=== PATIENT | female | born 1955 | race Caucasian/White ===

== ENCOUNTER 2017-11-26 08:00 | Emergency (ER) | payer SELFPAY ==
[2017-11-26 08:17] VITALS: BP 138/83
[2017-11-26] MEDS ORDERED: HYDROCODONE/ACETAMINOPHEN 5-325 MG TABLET PO ONE (09:19)
--- NOTE | 2017-11-26 10:14 | RADIOLOGY REPORT (SQ) ---
EXAM DESCRIPTION: KNEE RIGHT 4 VIEWS COMPLETED DATE/TIME: 11/26/2017 9:58 am REASON FOR STUDY: r knee pain, dog hit back of knee COMPARISON: None. NUMBER OF VIEWS: Four views. TECHNIQUE: AP, lateral, and both oblique radiographic images acquired of the right knee. LIMITATIONS: None. FINDINGS: MINERALIZATION: Normal. BONES: No acute fracture or dislocation. No worrisome bone lesions. 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 JOINT: No effusion. SOFT TISSUES: No soft tissue swelling. No radio-opaque foreign body. OTHER: No other significant finding. IMPRESSION: NEGATIVE STUDY OF THE RIGHT KNEE. NO RADIOGRAPHIC EVIDENCE OF ACUTE INJURY. TECHNICAL DOCUMENTATION: JOB ID: [id number] [employer]- All Rights Reserved
--- NOTE | 2017-11-26 10:38 | ER Document Report ---
HPI - HPI Patient complains to provider of: r knee pain Onset: Yesterday Onset/Duration: Sudden Quality of pain: Achy Pain Level: 5 Context: Patient has a history of chronic right knee pain is currently being evaluated by her primary doctor to have an outpatient MRI. Patient states yesterday that her dog came behind her hitting the back of her right knee which caused her knee to pop. Patient complains of increased pain since then and difficulty with weightbearing. Associated Symptoms: Other - Right knee injury Exacerbated by: Standing, Movement, Walking Relieved by: Denies Similar symptoms previously: No Recently seen / treated by doctor: No - ROS ROS below otherwise negative: Yes Systems Reviewed and Negative: Yes All other systems reviewed and negative - NEURO Neurology: DENIES: Weakness - MUSCULOSKELETAL Musculoskeletal: REPORTS: Extremity pain - post. right knee - DERM Skin Color: Normal Skin Problems: None Past Medical History - General Information source: Patient - Social History Smoking Status: Never Smoker Chew tobacco use (# tins/day): No Frequency of alcohol use: None Drug Abuse: None Occupation: Works from home Lives with: Family Family History: Reviewed & Not Pertinent Patient has suicidal ideation: No Patient has homicidal ideation: No - Medical History Medical History: Negative Renal/ Medical History: Denies: Hx Peritoneal Dialysis Past Surgical History: Reports: Hx Section, Hx Orthopedic Surgery Vertical Provider Document - CONSTITUTIONAL Agree With Documented VS: Yes Exam Limitations: No Limitations General Appearance: WD/WN, No Apparent Distress - INFECTION CONTROL TRAVEL OUTSIDE OF THE [place] IN LAST 30 DAYS: No - HEENT HEENT: Atraumatic, Normocephalic - NECK Neck: Normal Inspection - RESPIRATORY Respiratory: Breath Sounds Normal, No Respiratory Distress O2 Sat by Pulse Oximetry: 97 - CARDIOVASCULAR Cardiovascular: Regular Rate, Regular Rhythm Pulses: Normal: Dorsalis pedis - MUSCULOSKELETAL/EXTREMETIES Musculoskeletal/Extremeties: MAEW, Tender - Right knee joint tenderness to medial inferior compartment, no laxity with varus or valgus maneuvers. Patellar tendon intact. No joint effusion - NEURO Level of Consciousness: Awake, Alert, Appropriate Motor/Sensory: No Motor Deficit - DERM Integumentary: Warm, Dry, No Rash Course - Vital Signs Vital signs: Temp Pulse Resp BP Pulse Ox 98.2 F 82 16 138/83 H 97 11/26/17 08:15 11/26/17 08:15 11/26/17 08:15 11/26/17 08:15 11/26/17 08:15 - Diagnostic Test Radiology reviewed: Image reviewed, Reports reviewed Procedures - Immobilization Right Knee Pre-Proc Neuro Vasc Exam: Normal Immobilizer type: Knee immobilizer Performed by: PCT Post-Proc Neuro Vasc Exam: Normal Alignment checked and good: Yes Discharge - Discharge Clinical Impression: Right knee sprain Qualifiers: Encounter type: initial encounter Involved ligament of knee: unspecified ligament Qualified Code(s): S83.91XA - Sprain of unspecified site of right knee , initial encounter Condition: Stable Disposition: HOME, SELF-CARE Instructions: Use of Crutches ([facility]), Ice & Elevation ([facility]), Knee Immobilizing Splint ([facility]), Oral Narcotic Medication ([facility]), Sprained Knee ([facility]) Additional Instructions: Return immediately for any new or worsening symptoms Followup with your primary care provider, call tomorrow to make a followup appointment Follow-up with orthopedic doctor for further evaluation of her right knee pain Prescriptions: Hydrocodone/Acetaminophen [[place] 5-325 Tablet] 1 each PO Q4 PRN #10 tablet PRN Reason: Referrals: ASHLEY UMANZOR MD [Primary Care Provider] - Follow up as needed [facility] [Provider Group] - Follow up in 3-5 days
== END 2017-11-26 11:03 | disposition home or self-care (01) ==
LOC: ER 08:00
DX: S83.91XA Sprain of unspecified site of right knee, initial encounter (principal); M25.561 Pain in right knee; W54.1XXA Struck by dog, initial encounter; Y92.009 Unspecified place in unspecified non-institutional (private) residence as the place of occurrence of the external cause
CPT/HCPCS: 99283; 73564; L1830

== ENCOUNTER → 2017-12-02 | Outpatient (CLI) | payer SELFPAY ==
--- NOTE | 2017-12-02 16:37 | RADIOLOGY REPORT (SQ) ---
EXAM DESCRIPTION: MRI RT LOWER JOINT WITHOUT COMPLETED DATE/TIME: 12/02/2017 3:45 pm REASON FOR STUDY: M25.561 PAIN IN RIGHT KNEE M25.561 PAIN IN RIGHT KNEE COMPARISON: None. TECHNIQUE: Rightknee images acquired and stored on PACS. Multiplanar images include fat sensitive s equences as T1, water sensitive sequences as FST2 or STIR, cartilage sensitive sequences as FSPD, and gradient echo sequences. LIMITATIONS: None. FINDINGS: JOINT AND BURSAE: No effusion. BONE CORTEX AND MARROW: No alteration of signal to suggest marrow replacement. No worrisome bone lesi ons. No occult fracture. ACL: Diffusely small and high in signal worrisome for chronic tear PCL: Intact. MCL: Intact. No periligamentous edema or fluid. LCL: Intact. No periligamentous edema or fluid. MEDIAL MENISCUS: There is high signal throughout the posterior horn medial meniscus from horizontal t ear. No parameniscal cysts. LATERAL MENISCUS: No tears. No abnormal signal. MEDIAL COMPARTMENT: Mild chondromalacia. No bone bruises or reactive marrow edema. No osteophytes. LATERAL COMPARTMENT: Cartilage preserved. No bone bruises or reactive marrow edema. No osteophytes. PATELLA: Mild chondromalacia. No subchondral cysts. Medial and lateral retinacula intact. EXTENSOR MECHANISM: Intact. Quadriceps and patella tendons normal. SOFT TISSUES: There is tendinopathy of the proximal attachment, medial head gastrocnemius muscle, bes t shown on coronal image 18-20 and sagittal image 24. An adjacent 15 mm cyst is present. OTHER: No other significant finding. IMPRESSION: Insufficient ACL, small with high signal, likely chronic tear Posterior horn medial meniscus tear Proximal medial head gastrocnemius tendinopathy with adjacent synovial cyst TECHNICAL DOCUMENTATION: JOB ID: [id number] [employer]- All Rights Reserved Reading location - IP/workstation name: [email or web address]
== END ==
LOC: RAD 15:25
PROVIDERS: ATTEND Family Medicine
DX: M25.561 Pain in right knee (principal); M23.221 Derangement of posterior horn of medial meniscus due to old tear or injury, right knee

== ENCOUNTER 2018-09-16 08:18 | Day surgery (SDC) | payer SELFPAY ==
[2018-09-09 09:45] LABS: APPEARANCE,URINE SLIGHTLY-CLOUDY; BILIRUBIN,URINE NEGATIVE (NEGATIVE); COLOR,URINE YELLOW; GLUCOSE, URINE NEGATIVE (NEGATIVE); KETONES,URINE NEGATIVE (NEGATIVE); LEUKOCYTE ESTERASE,URINE LARGE (NEGATIVE); NITRITE,URINE NEGATIVE (NEGATIVE); PROTEIN,URINE NEGATIVE (NEGATIVE); URINE SPECIFIC GRAVITY 1.013; UROBILINOGEN,URINE NEGATIVE mg/dL (<2.0)
[2018-09-09 10:05] LABS: ANION GAP 11 (5-19); BLOOD UREA NITROGEN 14 mg/dL (7-20); CALCIUM 9.6 mg/dL (8.4-10.2); CARBON DIOXIDE 33 mmol/L (22-30); CHLORIDE 101 mmol/L (98-107); GLUCOSE 81 mg/dL (75-110); POTASSIUM 4.7 mmol/L (3.6-5.0); SODIUM 144.9 mmol/L (137-145)
[2018-09-09 11:51] LABS: HEMATOCRIT 42.3 % (36.0-47.0); HEMOGLOBIN 14.4 g/dL (12.0-15.5); MEAN CORPUSCULAR HEMOGLOBIN 30.6 pg (27.0-33.4); MEAN CORPUSCULAR HGB CONC 34.1 g/dL (32.0-36.0); MEAN CORPUSCULAR VOLUME 90 fl (80-97); RED BLOOD COUNT 4.71 10^6/uL (3.72-5.28); RED CELL DISTRIBUTION WIDTH 13.7 % (11.5-14.0); WHITE BLOOD COUNT 7.2 10^3/uL (4.0-10.5)
[2018-09-09 11:54] LABS: PLATELET COUNT 233 10^3/uL (150-450)
--- NOTE | 2018-09-09 11:58 | EKG REPORT ---
SEVERITY:- NORMAL ECG - SINUS RHYTHM : Confirmed by: Hay Ramos 09-Sep-2018 11:58:14
[~2018-09-16 08:18] MED LIST: CEFAZOLIN 2 GM/D5W RTU 2 GM/50 ML RTUPB IV PRN; LACTATED RINGERS 1000 ML IV PRN; LIDOCAINE 0.5% INJ-PF (5 MG/ML) 50 ML SDV SUBCUT PRN
[2018-09-16] MEDS ORDERED: CEFAZOLIN 2 GM/D5W RTU 2 GM/50 ML RTUPB IV ONE (08:35)
[2018-09-16] MEDS ORDERED: BUPIVACAINE HCL 0.5 % INJ/PF 30 ML SDV ONE (08:56)
[2018-09-16] MEDS ORDERED: LIDOCAINE 1%/EPINEPHRINE INJ 20 ML VIAL ONE (08:57)
[2018-09-16] MEDS ORDERED: ONDANSETRON HCL INJ/PF 4 MG/2 ML SDV ONE (10:35)
[2018-09-16] MEDS ORDERED: FENTANYL CITRATE INJ/PF 100 MCG/2 ML AMPUL ONE (10:35)
[2018-09-16] MEDS ORDERED: MIDAZOLAM 2 MG/2 ML INJ ONE (10:35)
[2018-09-16] MEDS ORDERED: PROPOFOL INJ 200 MG/20 ML VIAL IV ONE (10:36)
[2018-09-16] MEDS ORDERED: MORPHINE SULFATE 10 MG/ML INJ IV PRN (10:57)
[2018-09-16] MEDS ORDERED: FENTANYL CITRATE INJ/PF 100 MCG/2 ML AMPUL IV PRN ×3 (10:57)
[2018-09-16] MEDS ORDERED: DIPHENHYDRAMINE HCL 50 MG/ML VIAL IV PRN (10:57)
[2018-09-16] MEDS ORDERED: MEPERIDINE HCL/PF INJ 25 MG/1 ML DISP.SYRIN IV PRN (10:57)
[2018-09-16] MEDS ORDERED: PROMETHAZINE HCL INJ 25 MG/1 ML VIAL IV PRN (10:57)
--- NOTE | 2018-09-16 11:13 | Operative Report ---
Operative Report DATE OF SURGERY: 09/16/18 PREOPERATIVE DIAGNOSIS: Right medial meniscal tear POSTOPERATIVE DIAGNOSIS: Right medial meniscal tear. 1-1/2 cm chondral injury medial tibial plateau. Grade II chondromalacia the medial compartment. Intact ACL. Intact lateral meniscus. Linear fissure through the lateral tibial plateau. Grade 0-I chondromalacia the patellofemoral compartment OPERATION: Arthroscopic microfracture medial tibial plateau and partial medial meniscectomy SURGEON: EMILE GARCIA ANESTHESIA: LMAC ESTIMATED BLOOD LOSS: Minimal PROCEDURE: With the patient supine and operative table the right lower extremities prepped and draped in sterile fashion. The knee is insufflated with accommodation Marcaine, Xylocaine, and epinephrine through medial lateral infrapatellar portals. Subsequent medial lateral patella portals are created for the introduction of arthroscope and debridements mentation. The arthroscope was inserted through the lateral infrapatellar portal and the joint examined in systematic fashion findings as above. Using a mechanical shaver the debridement of the medial tibial plateau chondral injury is performed for all loose aspects around its periphery. This is also used to perform partial medial meniscectomy from approximately 2:00 to 5:00 on the face of the dial. Next microfracture awls were then used to punctate the medial tibial plateau that is exposed subchondral bone. Intra-articular pressure was then decreased to ensure that this leads to bleeding and subsequent access to the bone marrow. Instrumentation was removed. Portals reapproximated interrupted nylon. A sterile compressive dressing was applied and the patient's return to PACU in satisfactory condition.
--- NOTE | 2018-09-16 11:16 | Discharge Summary ---
Discharge Summary (SDC) - Discharge Final Diagnosis: Right medial meniscal tear Date of Surgery: 09/16/18 Discharge Date: 09/16/18 Condition: Good Treatment or Instructions: Removed compressive wrap from right lower extremity on Friday. Leave the underlying OpSite dressing in place until you return to the office Prescriptions: Oxycodone HCl/Acetaminophen [Percocet 5-325 mg Tablet] 1 tab PO Q6 PRN #25 tab PRN Reason: Referrals: EMILE GARCIA MD [ACTIVE STAFF] - 09/20/18 2:00 pm Discharge Diet: As Tolerated, Regular Respiratory Treatments at Home: Deep Breathing/Coughing Discharge Activity: Balance Activity w/Rest, No tub bath Home Care Assistance: None Needed Report the Following to Your Physician Immediately: Shortness of Breath, Fever over 101 Degrees, Drainage-Foul Smelling
[2018-09-16] MEDS: FENTANYL CITRATE INJ/PF 100 MCG/2 ML AMPUL ONE ×2 (11:22→11:28)
[2018-09-16] MEDS ORDERED: OXYCODONE-ACETAMINOPHEN 5-325 MG TABLET ONE (12:13)
[2018-09-16] MEDS ORDERED: OXYCODONE-ACETAMINOPHEN 5-325 MG TABLET PO ONE (12:30)
[2018-09-16 13:58] VITALS: BP 174/76
== END 2018-09-16 13:45 | disposition home or self-care (01) ==
LOC: OROUT 08:18
PROVIDERS: ATTEND Orthopaedic Surgery
DX: M94.261 Chondromalacia, right knee (principal); M23.303 Other meniscus derangements, unspecified medial meniscus, right knee; S83.31XA Tear of articular cartilage of right knee, current, initial encounter; X58.XXXA Exposure to other specified factors, initial encounter; M25.561 Pain in right knee; Z79.891 Long term (current) use of opiate analgesic; E66.9 Obesity, unspecified; Z68.35 Body mass index [BMI] 35.0-35.9, adult; M19.90 Unspecified osteoarthritis, unspecified site
CPT/HCPCS: 93005; 36415; 85027; 80048; 81001; 93010; 29879; 29880; J2250; J3490 ×2; J3010; J2405; J2704; J0690; 1400

== ENCOUNTER 2019-07-23 09:46 | Observation (INO) | payer MEDICARE ==
[2019-07-23] MEDS ORDERED: ASPIRIN 81 MG TABLET, CHEWABLE PO ONE (09:48)
[2019-07-23 10:05] LABS: ABSOLUTE BASOPHILS # (AUTO) 0.1 10^3/uL (0.0-0.2); ABSOLUTE EOSINOPHILS # (AUTO) 0.2 10^3/uL (0.0-0.6); ABSOLUTE LYMPHOCYTES (AUTO) 1.8 10^3/uL (0.5-4.7); ABSOLUTE MONOCYTES (AUTO) 0.6 10^3/uL (0.1-1.4); ABSOLUTE NEUT (AUTO) 5.3 10^3/uL (1.7-8.2); EOSINOPHILS % (AUTO) 2.8 % (0-6); HEMATOCRIT 46.5 % (36.0-47.0); HEMOGLOBIN 15.4 g/dL (12.0-15.5); LYMPHOCYTES % (AUTO) 22.2 % (13-45); MEAN CORPUSCULAR HEMOGLOBIN 29.8 pg (27.0-33.4); MEAN CORPUSCULAR HGB CONC 33.2 g/dL (32.0-36.0); MEAN CORPUSCULAR VOLUME 90 fl (80-97); PLATELET COUNT 249 10^3/uL (150-450); RED BLOOD COUNT 5.18 10^6/uL (3.72-5.28); RED CELL DISTRIBUTION WIDTH 13.1 % (11.5-14.0); TOTAL CELLS COUNTED % (AUTO) 100 %; WHITE BLOOD COUNT 8.1 10^3/uL (4.0-10.5)
[2019-07-23] MEDS ORDERED: METOPROLOL TARTRATE PF/INJ 5 MG/5 ML SDV IV ONE (10:10)
[2019-07-23] MEDS ORDERED: NORMAL SALINE 1000 ML 1,000 ML IV ONE (10:11)
--- NOTE | 2019-07-23 10:15 | ER Document Report ---
Entered by EMILE JOSEPH SCRIBE 07/23/19 1015 Acting as scribe for:FREDO BRADLEY MD ED Cardiac - General Chief Complaint: Chest Pain Stated Complaint: CHEST PAIN Time Seen by Provider: 07/23/19 10:00 Primary Care Provider: STAR SHEN MD [NO LOCAL MD] - Follow up as needed Mode of Arrival: Medic Information source: Patient Notes: 64-year-old female who presents the emergency department today with complaints of chest pain with associated palpitations and a heart racing sensation which began at 0845 this morning. Patient states she had just gotten to work when her symptoms began. Patient states the pain radiates to her back but it is "much better now". Patient states she was given nitroglycerin in route by EMS which did not really change the pain. Patient states when the pain began she was diaphoretic and "could not breathe through her nose". Patient states she does not know any of her family history other than her maternal grandfather having diabetes as she is adopted. TRAVEL OUTSIDE OF THE [place] IN LAST 30 DAYS: No - Related Data Allergies/Adverse Reactions: No Known Allergies Allergy (Verified 09/16/18 08:29) Past Medical History - General Information source: Patient - Social History Smoking Status: Never Smoker Cigarette use (# per day): No Chew tobacco use (# tins/day): No Frequency of alcohol use: Rare Drug Abuse: None Family History: Reviewed & Not Pertinent Patient has suicidal ideation: No Patient has homicidal ideation: No Musculoskeletal Medical History: Reports Hx Arthritis - right knee Past Surgical History: Reports: Hx Section - x2, Hx Cholecystectomy, Hx Hysterectomy, Hx Orthopedic Surgery - Left knee, Carpal Tunnel surgery, Hx Tonsillectomy - Immunizations Hx Diphtheria, Pertussis, Tetanus Vaccination: No Review of Systems - Review of Systems Constitutional: See HPI, Diaphoresis EENT: No symptoms reported Cardiovascular: See HPI, Chest pain, Palpitations, Heart racing Respiratory: See HPI, Short of breath Gastrointestinal: No symptoms reported Genitourinary: No symptoms reported Female Genitourinary: No symptoms reported Musculoskeletal: No symptoms reported Skin: No symptoms reported Hematologic/Lymphatic: No symptoms reported Neurological/Psychological: No symptoms reported -: Yes All other systems reviewed and negative Physical Exam - Vital signs Vitals: Pulse Ox 96 07/23/19 09:55 - Notes Notes: Physical Exam: General: Alert, appears well. HEENT: Normocephalic. Atraumatic. PERRL. Extraocular movements intact. Oropharynx clear. Neck: Supple. Non-tender. Respiratory: Anterior chest wall tenderness to palpation, left greater than right. No respiratory distress. Clear and equal breath sounds bilaterally. Cardiovascular: Tachycardic, regular rhythm. Abdominal: Obese. Non-tender. No distension. Normal Bowel Sounds. Back: No gross abnormalities. Extremities: Moves all four extremities. Upper extremities: Normal inspection. Normal ROM. Lower extremities: Normal inspection. No edema. Normal ROM. Neurological: Normal cognition. AAOx4. Normal speech. Psychological: Normal affect. Normal Mood. Skin: Warm. Dry. Normal color. Course - Re-evaluation Re-evalutation: 07/23/19 10:37 Prior to the patient getting the Lopressor IV dose that was ordered, she spontan eously converted to a normal sinus rhythm with rate of 96 and a totally normal EKG. Her blood pressure dropped from 150 systolic to 132/76. - Vital Signs Vital signs: Temp Pulse Resp BP Pulse Ox 98.3 F 150/123 H 96 07/23/19 10:00 07/23/19 10:05 07/23/19 10:45 - Laboratory Result Diagrams: 07/23/19 09:30 07/23/19 09:30 Laboratory results interpreted by me: 07/23/19 09:30 Carbon Dioxide 21 L Glucose 122 H AST 57 H - Diagnostic Test Radiology reviewed: Image reviewed, Reports reviewed - Chest x-ray shows elevation of the right hemidiaphragm, no acute radiographic findings. - EKG Interpretation by Ks EKG shows normal: Jesse, Intervals, QRS Complexes. abnormal: ST-T Waves - Anterolateral ST depression Rate: Tachycardia - 139 Rhythm: Other - Junctional tachycardia Jesse/QRS: Left axis deviation - Borderline left axis deviation - Consults Dr. Zee Time consulted: 12:40 Consulted provider: will come to ER Critical Care Note - Critical Care Note Total time excluding time spent on procedures (mins): 30 Discharge - Discharge Clinical Impression: Junctional tachycardia, Elevated blood pressure reading Chest pain Qualifiers: Chest pain type: unspecified Qualified Code(s): R07.9 - Chest pain, unspecified Condition: Stable Disposition: ADMITTED INPATIENT Admitting Provider: Yayo (Hospitalist) Unit Admitted: Telemetry Referrals: STAR SHEN MD [NO LOCAL MD] - Follow up as needed Scribe Attestation: 07/23/19 12:45 I personally performed the services described in the documentation, reviewed and edited the documentation which was dictated to the scribe in my presence, and it accurately records my words and actions. I personally performed the services described in the documentation, reviewed and edited the documentation which was dictated to the scribe in my presence, and it accurately records my words and actions.
[2019-07-23 10:31] LABS: ALBUMIN 4.3 g/dL (3.5-5.0); ALKALINE PHOSPHATASE 107 U/L (38-126); ANION GAP 12 (5-19); ASPARTATE AMINO TRANSFERASE 57 U/L (14-36); BILIRUBIN,DIRECT 0.2 mg/dL (0.0-0.4); BILIRUBIN,TOTAL 0.9 mg/dL (0.2-1.3); BLOOD UREA NITROGEN 10 mg/dL (7-20); CALCIUM 9.7 mg/dL (8.4-10.2); CARBON DIOXIDE 21 mmol/L (22-30); CHLORIDE 107 mmol/L (98-107); CREATINE KINASE 96 U/L (30-135); GLUCOSE 122 mg/dL (75-110); POTASSIUM 4.5 mmol/L (3.6-5.0); TOTAL PROTEIN 7.6 g/dL (6.3-8.2)
[2019-07-23 10:58] LABS: CREATINE KINASE MB 0.62 ng/mL (<4.55)
[2019-07-23 10:59] LABS: TROPONIN I < 0.012 ng/mL
--- NOTE | 2019-07-23 11:02 | RADIOLOGY REPORT (SQ) ---
EXAM DESCRIPTION: CHEST SINGLE VIEW COMPLETED DATE/TIME: 07/23/2019 10:44 am REASON FOR STUDY: Chest pain, SVT COMPARISON: None. EXAM PARAMETERS: NUMBER OF VIEWS: One view. TECHNIQUE: Single frontal radiographic view of the chest acquired. RADIATION DOSE: NA LIMITATIONS: None. FINDINGS: LUNGS AND PLEURA: Elevation of the right hemidiaphragm. No opacities, masses or pneumotho rax. No pleural effusion. MEDIASTINUM AND HILAR STRUCTURES: No masses. Contour normal. HEART AND VASCULAR STRUCTURES: Heart normal in size. Normal vasculature. BONES: No acute findings. HARDWARE: None in the chest. OTHER: No other significant finding. IMPRESSION: NO ACUTE RADIOGRAPHIC FINDING IN THE CHEST. TECHNICAL DOCUMENTATION: JOB ID: [id number] [employer] All Rights Reserved Reading location - IP/workstation name: [email or web address]
[2019-07-23] MEDS ORDERED: OXYCODONE-ACETAMINOPHEN 5-325 MG TABLET PO PRN (14:13)
[2019-07-23] MEDS ORDERED: ONDANSETRON HCL INJ/PF 4 MG/2 ML SDV IV PRN (14:13)
[2019-07-23] MEDS ORDERED: TEMAZEPAM 7.5 MG CAPSULE PO PRN (14:13)
[2019-07-23] MEDS ORDERED: ACETAMINOPHEN 325 MG TABLET PO PRN (14:13)
[2019-07-23] MEDS ORDERED: PROMETHAZINE HCL INJ 25 MG/1 ML VIAL IV PRN (14:13)
[2019-07-23] MEDS ORDERED: ALBUTEROL SULFATE 0.083% NEB 2.5 MG/3 ML AMPUL NEB PRN (14:13)
[2019-07-23] MEDS ORDERED: NORMAL SALINE 1000 ML 1,000 ML IV PRN (14:13)
[2019-07-23] MEDS ORDERED: HYDRALAZINE HCL INJ/PF 20 MG/1 ML SDV IV PRN (14:49)
[2019-07-23 14:51] LABS: FREE T3 3.53 pg/mL (2.77-5.27); FREE T4 (FREE THYROXINE) 1.19 ng/dL (0.78-2.19)
[2019-07-23 15:04] LABS: THYROID STIMULATING HORMONE 2.65 uIU/mL (0.47-4.68)
[2019-07-23 18:01] LABS: ANION GAP 10 (5-19); BLOOD UREA NITROGEN 10 mg/dL (7-20); CALCIUM 9.4 mg/dL (8.4-10.2); CARBON DIOXIDE 28 mmol/L (22-30); CHLORIDE 105 mmol/L (98-107); GLUCOSE 108 mg/dL (75-110); POTASSIUM 4.2 mmol/L (3.6-5.0)
--- NOTE | 2019-07-23 19:06 | PDOC H&P ---
History of Present Illness Admission Date/PCP: 07/23/19 13:00 ASHLEY UMANZOR MD History of Present Illness: LEORA VILLAVICENCIO is a 64 year old female with no significant past medical history and not taking any medication except for multiple surgeries in the past, presented to ED complaining of chest pain. Patient stating when he got to work today she was doing fine but suddenly started having pressure-like left-sided chest pain radiating to her back, associated with dizziness, palpitation, cold sweats and nausea. She feels pressure-like chest pain within 10 minutes intermittently lasting about 1 to 2 minutes each time. Chest pain got resolved after she was given sublingual nitroglycerin by EMS. Patient not very active because of her multiple bilateral lower extremity surgeries however she denies any orthopnea, paroxysmal nocturnal dyspnea, dyspnea on exertion, weight changes, pillow orthopnea. Patient is adopted and could not provide any family history. In ED she was noted to have junctional tachycardia was allowed to get be given some beta-blockers however she converted to sinus rhythm on her own. Follow-up EKG was sinus rhythm with no acute changes. Initial troponin was negative however the second troponin was mildly elevated. Hospitalist was consulted for admission. Past Medical History Cardiac Medical History: Denies: Coronary Artery Disease, Myocardial Infarction, Hypertension Pulmonary Medical History: Denies: Asthma, Bronchitis, Chronic Obstructive Pulmonary Disease (COPD), [place] Neurological Medical History: Denies: Seizures Musculoskeltal Medical History: Reports: Arthritis - right knee Hematology: Reports: Anemia - as a teen & 2015 Past Surgical History Past Surgical History: Reports: Section - x2, Cholecystectomy, Hysterectomy, Orthopedic Surgery - Left knee, Carpal Tunnel surgery, Tonsillectomy Social History Smoking Status: Never Smoker Electronic Cigarette use?: No Family History Family History: Reviewed & Not Pertinent Parental Family History Reviewed: Yes Children Family History Reviewed: Yes Sibling(s) Family History Reviewed.: Yes Medication/Allergy Home Medications: Diphenhydramine HCl [Benadryl] 25 mg PO HSP PRN 07/23/19 Ibuprofen/Diphenhydramine HCl [Advil Pm Liqui-Gels] 1 each PO QHS 07/23/19 Allergies/Adverse Reactions: No Known Allergies Allergy (Verified 09/16/18 08:29) Review of Systems Review of Systems: as per hpi Physical Exam Vital Signs: Temp Pulse Resp BP Pulse Ox 98.3 F 150/123 H 96 07/23/19 10:00 07/23/19 10:05 07/23/19 10:45 Intake & Output 07/22/19 07/23/19 07/24/19 06:59 06:59 06:59 Intake Total 1000 Balance 1000 Weight 116.1 kg General appearance: PRESENT: morbidly obese Head exam: PRESENT: atraumatic, normocephalic Eye exam: PRESENT: conjunctiva pink, EOMI, PERRLA. ABSENT: scleral icterus Ear exam: PRESENT: normal external ear exam Mouth exam: PRESENT: moist, tongue midline Neck exam: ABSENT: carotid bruit, JVD, lymphadenopathy, thyromegaly Respiratory exam: PRESENT: clear to auscultation lin. ABSENT: rales, rhonchi, wheezes Cardiovascular exam: PRESENT: RRR. ABSENT: diastolic murmur, rubs, systolic murmur Pulses: PRESENT: normal dorsalis pedis pul Vascular exam: PRESENT: normal capillary refill GI/Abdominal exam: PRESENT: normal bowel sounds, soft. ABSENT: distended, guarding, mass, organolmegaly, rebound, tenderness Rectal exam: PRESENT: deferred Extremities exam: PRESENT: full ROM. ABSENT: calf tenderness, clubbing, pedal edema Neurological exam: PRESENT: alert, awake, oriented to person, oriented to place, oriented to time, oriented to situation, CN II-XII grossly intact. ABSENT: motor sensory deficit Psychiatric exam: PRESENT: appropriate affect, normal mood. ABSENT: homicidal ideation, suicidal ideation Skin exam: PRESENT: dry, intact, warm. ABSENT: cyanosis, rash Results Laboratory Results: 07/23/19 09:30 07/23/19 17:15 07/23/19 07/23/19 07/23/19 09:30 09:30 11:24 WBC 8.1 RBC 5.18 Hgb 15.4 Hct 46.5 MCV 90 MCH 29.8 MCHC 33.2 RDW 13.1 Plt Count 249 Seg Neutrophils % 66.0 Sodium 140.3 Potassium 4.5 Chloride 107 Carbon Dioxide 21 L Anion Gap 12 BUN 10 Creatinine 0.70 Est GFR ( Amer) > 60 Glucose 122 H Calcium 9.7 Total Bilirubin 0.9 AST 57 H Alkaline Phosphatase 107 Total Protein 7.6 Albumin 4.3 Lipase TSH 2.65 Free T4 1.19 Free T3 pg/mL 3.53 07/23/19 07/23/19 17:15 17:15 WBC RBC Hgb Hct MCV MCH MCHC RDW Plt Count Seg Neutrophils % Sodium 142.5 Potassium 4.2 Chloride 105 Carbon Dioxide 28 Anion Gap 10 BUN 10 Creatinine 0.70 Est GFR ( Amer) > 60 Glucose 108 Calcium 9.4 Total Bilirubin AST Alkaline Phosphatase Total Protein Albumin Lipase 103.9 TSH Free T4 Free T3 pg/mL 07/23/19 07/23/19 07/23/19 09:30 09:30 11:24 Creatine Kinase 96 CK-MB (CK-2) 0.62 Troponin I < 0.012 0.021 07/23/19 17:15 Creatine Kinase CK-MB (CK-2) Troponin I 0.080 Impressions: Chest X-Ray 07/23/19 10:10 IMPRESSION: NO ACUTE RADIOGRAPHIC FINDING IN THE CHEST. Assessment and Plan - Diagnosis (1) Chest pain Qualifiers: Chest pain type: unspecified Qualified Code(s): R07.9 - Chest pain, unspecified Is this a current diagnosis for this admission?: Yes Plan: HEART Score of 7 Patient cannot provide any family history as she is adopted. No significant past medical history who presented with very typical chest pain. Patient will need nuclear stress test for further risk stratification however Dr. Bell will not be available over the weekend and a stress test could not be done until next Friday. I have discussed the case with Dr. Bell who suggested to order a stat echo and he will see her tomorrow. Admit to telemetry, antiplatelets, beta-blockers, GEORGE, statins. Trend troponins. Cardiology consulted. (2) Junctional tachycardia Is this a current diagnosis for this admission?: Yes Plan: Patient presents with sinus rhythm with no intervention. I wonder if her elevated troponins are due to junctional tachycardia or ACS. Admit to telemetry, trend troponins, antiplatelets, beta-blockers, cardiology consult. (3) Hypertension Is this a current diagnosis for this admission?: Yes Plan: Denies any history of hypertension however has noted to be hypertensive on this admission. Continue GEORGE. Adjust meds as needed. Outpatient PCP follow-up. (4) Elevated troponin Is this a current diagnosis for this admission?: Yes Plan: Likely elevated due to ACS VS junctional tachycardia. Plan as per 1 and 2.
[2019-07-23] MEDS ORDERED: NITROGLYCERIN 0.4 MG/TAB 25 TAB/BOTTLE SL PRN (19:10)
[2019-07-23] MEDS ORDERED: MORPHINE SULFATE 10 MG/ML INJ IV PRN (19:10)
[2019-07-23] MEDS: LISINOPRIL 10 MG TABLET PO SCH (19:26)
[2019-07-23] MEDS ORDERED: ATORVASTATIN CALCIUM 10 MG TABLET PO ONE (20:00)
[2019-07-23] MEDS ORDERED: ATORVASTATIN CALCIUM 40 MG TABLET PO SCH (22:00)
[2019-07-23] MEDS: FAMOTIDINE 20 MG TABLET PO SCH (22:08)
[2019-07-24 06:29] LABS: ABSOLUTE BASOPHILS # (AUTO) 0.1 10^3/uL (0.0-0.2); ABSOLUTE EOSINOPHILS # (AUTO) 0.2 10^3/uL (0.0-0.6); ABSOLUTE LYMPHOCYTES (AUTO) 2.1 10^3/uL (0.5-4.7); ABSOLUTE MONOCYTES (AUTO) 0.7 10^3/uL (0.1-1.4); ABSOLUTE NEUT (AUTO) 3.9 10^3/uL (1.7-8.2); BASOPHILS % (AUTO) 0.8 % (0-2); EOSINOPHILS % (AUTO) 3.3 % (0-6); HEMATOCRIT 40.5 % (36.0-47.0); HEMOGLOBIN 13.4 g/dL (12.0-15.5); LYMPHOCYTES % (AUTO) 30.2 % (13-45); MEAN CORPUSCULAR HGB CONC 33.1 g/dL (32.0-36.0); MEAN CORPUSCULAR VOLUME 91 fl (80-97); PLATELET COUNT 202 10^3/uL (150-450); RED BLOOD COUNT 4.47 10^6/uL (3.72-5.28); RED CELL DISTRIBUTION WIDTH 13.2 % (11.5-14.0); SEGMENTED NEUTROPHILS % (AUTO) 55.7 % (42-78); TOTAL CELLS COUNTED % (AUTO) 100 %
[2019-07-24 06:52] LABS: ANION GAP 7 (5-19); BLOOD UREA NITROGEN 12 mg/dL (7-20); CALCIUM 9.3 mg/dL (8.4-10.2); CARBON DIOXIDE 26 mmol/L (22-30); CHLORIDE 106 mmol/L (98-107); GLUCOSE 85 mg/dL (75-110); POTASSIUM 4.3 mmol/L (3.6-5.0)
[2019-07-24 08:48] LABS: URINE AMPHETAMINES SCREEN NEGATIVE; URINE BARBITURATES SCREEN NEGATIVE; URINE BENZODIAZEPINES SCREEN NEGATIVE; URINE COCAINE SCREEN NEGATIVE; URINE MARIJUANA (THC) SCREEN NEGATIVE; URINE METHADONE SCREEN NEGATIVE; URINE PHENCYCLIDINE SCREEN NEGATIVE
[2019-07-24] MEDS: FAMOTIDINE 20 MG TABLET PO SCH (09:04)
[2019-07-24] MEDS: LISINOPRIL 10 MG TABLET PO SCH (09:05)
[2019-07-24] MEDS ORDERED: ENOXAPARIN SODIUM INJ 40 MG/0.4 ML DISP.SYRIN SUBCUT SCH (10:00)
[2019-07-24] MEDS ORDERED: ASPIRIN 81 MG TABLET, CHEWABLE PO SCH (10:00)
[2019-07-24] MEDS ORDERED: DOCUSATE SODIUM 100 MG/10 ML UDC PO SCH (10:00)
--- NOTE | 2019-07-24 13:09 | XCELERA REPORT ---
[address] [address] Transthoracic Echocardiogram Report Name: LEORA VILLAVICENCIO Age: 64 yrs Gender: Female : 1955 Patient Status: Inpatient Patient Location: [place] [address]^A Study Date: 07/23/2019 06:06 PM Height: 66 in Weight: 255 lb BSA: 2.2 m2 Procedure: A two-dimensional transthoracic echocardiogram with color flow and Doppler was performed. Study Quality: Technically suboptimal. Images were not obtained from all of the standard acoustic windows due to the limited scope of the study. Reason For Study: chest pain Ordering Physician: MARY MARKHAM Performed By: Autumn Ortiz Interpretation Summary The left ventricle is normal in size. There is normal left ventricular wall thickness. No 'True 2 chamber ' views obtained.Hence cannot comment on the apical and basal inferior ,and the apical and basal anterior tristan.The mid anterior ,the mid inferior , and the rest of the LV waaaalls contract normally.The LVEF in these limited views is normal and greater than 60%. Doppler measurements suggest normal left ventricular diastolic function There is no thrombus. Probably no ASD .VSD or PFO seen. The right ventricle is not well visualized secondary to technical limitations Right atrium not well visualized secondary to technical limitations The left atrial size is normal. There is no mitral valve stenosis. There is no evidence of mitral valve prolapse. There is no vegetation seen on the mitral valve. There is no aortic valvular vegetation. There is no aortic valve stenosis No aortic regurgitation is present. There is no tricuspid stenosis. There is a trace amount of tricuspid regurgitation Tricuspid regurgitation jet envelope not well defined to measure RV systolic pressure accurately. There is no pulmonic valvular stenosis. There is no pulmonic valvular regurgitation. The aortic root is normal size. The inferior vena cava appeared normal and decreased > 50% with respiration (RAP 5-10 mmHg) There is no pericardial effusion. MMode/2D Measurements & Calculations RVDd: 2.3 cm LVIDd: 3.8 cm FS: 35.2 % Ao root diam: 2.8 cm IVSd: 1.3 cm LVIDs: 2.5 cm EDV(Teich): 61.3 ml Ao root area: 6.1 cm2 LVPWd: 0.93 cm ESV(Teich): 21.3 ml LA dimension: 2.9 cm EF(Teich): 65.3 % Doppler Measurements & Calculations MV E max kong: MV P1/2t max kong: Ao V2 max: LV V1 max P.3 cm/sec 101.6 cm/sec 114.7 cm/sec 3.6 mmHg MV A max kong: MV P1/2t: 60.3 msec Ao max PG: LV V1 max: 80.0 cm/sec MVA(P1/2t): 3.6 cm2 5.3 mmHg 94.3 cm/sec MV E/A: 1.2 MV dec slope: 493.4 cm/sec2 MV dec time: 0.24 sec PA V2 max: MV P1/2t-pr_phl: 80.8 cm/sec 60.3 msec PA max P.6 mmHg Left Ventricle The left ventricle is normal in size. There is normal left ventricular wall thickness. No 'True 2 chamber ' views obtained.Hence cannot comment on the apical and basal inferior ,and the apical and basal anterior tristan.The mid anterior ,the mid inferior , and the rest of the LV waaaalls contract normally.The LVEF in these limited views is normal and greater than 60%. Doppler measurements suggest normal left ventricular diastolic function. There is no thrombus. Probably no ASD .VSD or PFO seen. Right Ventricle The right ventricle is not well visualized secondary to technical limitations. Atria Right atrium not well visualized secondary to technical limitations. The left atrial size is normal. Mitral Valve There is no evidence of mitral valve prolapse. There is no vegetation seen on the mitral valve. There is no mitral valve stenosis. There is a trace to mild amount of mitral regurgitation. Aortic Valve There is no aortic valvular vegetation. There is no aortic valve stenosis. No aortic regurgitation is present. Tricuspid Valve There is no tricuspid stenosis. There is a trace amount of tricuspid regurgitation. Tricuspid regurgitation jet envelope not well defined to measure RV systolic pressure accurately. Pulmonic Valve There is no pulmonic valvular stenosis. There is no pulmonic valvular regurgitation. Great Vessels The aortic root is normal size. The inferior vena cava appeared normal and decreased > 50% with respiration (RAP 5-10 mmHg). Effusions There is no pericardial effusion. : MARY MARKHAM Lakshmi
[2019-07-24] MEDS ORDERED: METOPROLOL SUCCINATE 25 MG TAB.SR.24H PO ONE (14:48)
[2019-07-24 16:07] VITALS: BP 143/62
[2019-07-24] MEDS ORDERED: ATORVASTATIN CALCIUM 40 MG TABLET PO SCH (22:00)
--- NOTE | 2019-07-24 22:34 | PDOC CONSULTATION ---
Consultation-Blank Consultation: CARDIOLOGY CONSULTATION by Dr. Kiersten Bell on 07/24/2019. Patient seen at 2 PM. 60 minutes spent on this patient with more than 50% of time spent in direct patient care. HISTORY PRESENT ILLNESS: Patient is a 64-year-old female with probably mild untreated hypertension, and obesity states that had broken sudden onset of diaphoresis and chest pain and rapid palpitations. She had some dizziness but no syncope. This lasted till she came to the emergency room where she was found to have an EKG which showed junctional tachycardia. There were about to give her IV Lopressor when the patient spontaneous converted to sinus rhythm. The patient denies such episodes in the past. As soon as the patient converted to sinus rhythm spontaneously the patient had no further chest pain. The patient's post conversion EKG to sinus rhythm shows that the EKG is within normal limits. Her cardiac biomarkers are negative/indeterminate. The patient has no prior history of coronary artery disease or palpitations or syncope or symptoms of congestive heart failure. At present the patient in no acute distress with no complaints. Past Medical History Cardiac Medical History: Denies: Coronary Artery Disease, Myocardial Infarction, Hypertension. But when the patient came in the emergency room she was hypertensive, although this could be secondary to the patient's anxiety due to the rapid beating of the heart, the patient most likely has mild untreated hypertension. This most likely will be controlled with Toprol-XL 25 mg p.o. daily, which will also prevent the patient from going into junctional tachycardia most likely. There is no prior history of tachycardia or cardiac arrhythmia. No history of syncope. No history of congestive heart failure. Pulmonary Medical History: Denies: Asthma, Bronchitis, Chronic Obstructive Pulmonary Disease (COPD), Pneumonia Neurological Medical History: Denies: Seizures Musculoskeltal Medical History: Reports: Arthritis - right knee Hematology: Reports: Anemia - as a teen & 2015 Past Surgical History Past Surgical History: Reports: Section - x2, Cholecystectomy, Hysterectomy, Orthopedic Surgery - Left knee, Carpal Tunnel surgery, Tonsillectomy Social History Smoking Status: Never Smoker Electronic Cigarette use?: No Family History Family History: Is negative for diabetes mellitus or coronary artery disease. RESUSCITATION STATUS: The patient is a full code. Her is her surrogate healthcare decision maker. Medication/Allergy Home Medications: Diphenhydramine HCl [Benadryl] 25 mg PO HSP PRN 07/23/19 Ibuprofen/Diphenhydramine HCl [Advil Pm Liqui-Gels] 1 each PO QHS 07/23/19 Allergies/Adverse Reactions: No Known Allergies Allergy (Verified 09/16/18 08: 29) Her medications reviewed as per MAR. Review of Systems Review of Systems: Constitutional: Denies any fever chills or rigors. Denies generalized fatigue or generalized weakness. HEAD: No history of headaches migraines or head injury. EYES: No history of amblyopia diplopia. No history of amaurosis fugax. EARS: No history of hearing loss. No tinnitus. NOSE: No history of hayfever. No history of nosebleeds. MOUTH: No history of altered taste sensation. No ulcers in the mouth. THROAT: No history of odynophagia or dysphagia. No recurrent sore throats. SKIN: No history of pruritus. No history of yellowish discoloration of skin. No eczema or skin cancer. NECK: No neck swelling or neck pain. LUNGS: No history of asthma or COPD. No symptoms of sleep apnea. No history of pulmonary embolism. No recent cough or symptoms of upper or lower respiratory tract infections. No hemoptysis. No pleuritic chest pain. HEART: Denies hypertension but the patient's blood pressure was mildly elevated on admission. This is the first episode of tachycardia and the patient the EKG showing junctional tachycardia. No endocrine abnormalities or any other precipitating factors found. No dizziness or syncope. No history of coronary artery disease, OK or anginal symptoms. No history of congestive heart failure. ENDOCRINE: No history of diabetes mellitus or thyroid disease. No history of polydipsia polyuria. No history of heat or cold intolerance. MUSCULOSKELETAL: Denies rheumatoid arthritis or collagen vascular disease. RENAL: No history of chronic kidney disease. No symptoms or UTI. No hematuria pyuria or dysuria. GI: No history of GI bleed. No history of GERD. No history of peptic ulcer disease. No history of fatty food intolerance. COMPLEX CASE MANAGER: No history of TIA CVA. No history of headaches migraines or seizures. PSYCHIATRIC: No homicidal ideation. No suicidal ideation. No history of anxiety or depression. VASCULAR: No history of calf or buttock claudication. METABOLIC: Denies hyperlipidemia. Does have obesity. No history of gout. VASCULAR: No history of calf or buttock claudication. No history of DVT. PHYSICAL EXAMINATION: The patient is moderate to morbidly obese. At present in no acute distress. She is in sinus rhythm. Selected Entries 07/24/19 07/24/19 12:05 14:00 Temperature 97.7 F Temperature Oral Source Pulse Rate 80 Respiratory 16 Rate Blood Pressure 131/69 H Blood Pressure 89 Mean BP Location Right Arm BP Position Supine O2 Sat by Pulse 98 Oximetry Oxygen Delivery Room Air Method HEAD: Atraumatic, normocephalic. EYES: Pupils equal round and reactive to light, extraocular movements intact, sclera anicteric, conjunctiva are normal. ENT: TMs normal, nares patent, oropharynx clear without exudates. Moist mucous membranes. NECK: Normal range of motion, supple without lymphadenopathy or JVD. LUNGS: Breath sounds clear to auscultation bilaterally and equal. No wheezes rales or rhonchi. There is no chest wall tenderness HEART: S1-S2 is heard. S1 is of normal intensity. There is no S3 gallop. There is no S4 gallop. There is systolic murmur left sternal border and the apex, there is no rub ABDOMEN: Soft, nontender, normoactive bowel sounds. No guarding, no rebound. No masses appreciated. EXTREMITIES: Normal range of motion, no pitting or edema. No clubbing or cyanosis. NEUROLOGICAL: Cranial nerves II through XII grossly intact. Normal speech, normal gait. There is subtle weakness in the left hand j2ee java developer. Sensations are normal bilaterally. PSYCH: Normal mood, normal affect. His judgment and insight are intact SKIN: Warm, Dry, normal turgor, no rashes or lesions noted. Labs- Entire Visit 07/23/19 07/23/19 07/23/19 09:30 09:30 09:30 WBC 8.1 RBC 5.18 Hgb 15.4 Hct 46.5 MCV 90 MCH 29.8 MCHC 33.2 RDW 13.1 Plt Count 249 Lymph % (Auto) 22.2 Conway % (Auto) 8.0 Eos % (Auto) 2.8 Baso % (Auto) 1.0 Absolute Neuts (auto) 5.3 Absolute Lymphs (auto) 1.8 Absolute Monos (auto) 0.6 Absolute Eos (auto) 0.2 Absolute Basos (auto) 0.1 Seg Neutrophils % 66.0 Sodium 140.3 Potassium 4.5 Chloride 107 Carbon Dioxide 21 L Anion Gap 12 BUN 10 Creatinine 0.70 Est GFR ( Amer) > 60 Est GFR (MDRD) Non-Af > 60 Glucose 122 H Hemoglobin A1c % Calcium 9.7 Magnesium Total Bilirubin 0.9 Direct Bilirubin 0.2 Neonat Total Bilirubin Not Reportable Neonat Direct Bilirubin Not Reportable Neonat Indirect Bili Not Reportable AST 57 H ALT 46 Alkaline Phosphatase 107 Creatine Kinase 96 CK-MB (CK-2) 0.62 Troponin I < 0.012 Total Protein 7.6 Albumin 4.3 Lipase TSH Free T4 Free T3 pg/mL Urine Opiates Screen Urine Methadone Screen Ur Barbiturates Screen Ur Phencyclidine Scrn Ur Amphetamines Screen U Benzodiazepines Scrn Urine Cocaine Screen U Marijuana (THC) Screen 07/23/19 07/23/19 07/23/19 11:24 11:24 17:15 WBC RBC Hgb Hct MCV MCH MCHC RDW Plt Count Lymph % (Auto) Conway % (Auto) Eos % (Auto) Baso % (Auto) Absolute Neuts (auto) Absolute Lymphs (auto) Absolute Monos (auto) Absolute Eos (auto) Absolute Basos (auto) Seg Neutrophils % Sodium 142.5 Potassium 4.2 Chloride 105 Carbon Dioxide 28 Anion Gap 10 BUN 10 Creatinine 0.70 Est GFR ( Amer) > 60 Est GFR (MDRD) Non-Af > 60 Glucose 108 Hemoglobin A1c % Calcium 9.4 Magnesium Total Bilirubin Direct Bilirubin Neonat Total Bilirubin Neonat Direct Bilirubin Neonat Indirect Bili AST ALT Alkaline Phosphatase Creatine Kinase CK-MB (CK-2) Troponin I 0.021 Total Protein Albumin Lipase TSH 2.65 Free T4 1.19 Free T3 pg/mL 3.53 Urine Opiates Screen Urine Methadone Screen Ur Barbiturates Screen Ur Phencyclidine Scrn Ur Amphetamines Screen U Benzodiazepines Scrn Urine Cocaine Screen U Marijuana (THC) Screen 07/23/19 07/23/19 07/23/19 17:15 17:15 23:16 WBC RBC Hgb Hct MCV MCH MCHC RDW Plt Count Lymph % (Auto) Conway % (Auto) Eos % (Auto) Baso % (Auto) Absolute Neuts (auto) Absolute Lymphs (auto) Absolute Monos (auto) Absolute Eos (auto) Absolute Basos (auto) Seg Neutrophils % Sodium Potassium Chloride Carbon Dioxide Anion Gap BUN Creatinine Est GFR ( Amer) Est GFR (MDRD) Non-Af Glucose Hemoglobin A1c % Calcium Magnesium Total Bilirubin Direct Bilirubin Neonat Total Bilirubin Neonat Direct Bilirubin Neonat Indirect Bili AST ALT Alkaline Phosphatase Creatine Kinase CK-MB (CK-2) Troponin I 0.080 0.071 Total Protein Albumin Lipase 103.9 TSH Free T4 Free T3 pg/mL Urine Opiates Screen Urine Methadone Screen Ur Barbiturates Screen Ur Phencyclidine Scrn Ur Amphetamines Screen U Benzodiazepines Scrn Urine Cocaine Screen U Marijuana (THC) Screen 07/24/19 07/24/19 07/24/19 05:37 05:37 05:37 WBC 7.0 RBC 4.47 Hgb 13.4 Hct 40.5 MCV 91 MCH 30.0 MCHC 33.1 RDW 13.2 Plt Count 202 Lymph % (Auto) 30.2 Conway % (Auto) 10.0 Eos % (Auto) 3.3 Baso % (Auto) 0.8 Absolute Neuts (auto) 3.9 Absolute Lymphs (auto) 2.1 Absolute Monos (auto) 0.7 Absolute Eos (auto) 0.2 Absolute Basos (auto) 0.1 Seg Neutrophils % 55.7 Sodium Potassium Chloride Carbon Dioxide Anion Gap BUN Creatinine Est GFR ( Amer) Est GFR (MDRD) Non-Af Glucose Hemoglobin A1c % Calcium Magnesium 2.3 Total Bilirubin Direct Bilirubin Neonat Total Bilirubin Neonat Direct Bilirubin Neonat Indirect Bili AST ALT Alkaline Phosphatase Creatine Kinase CK-MB (CK-2) Troponin I 0.051 Total Protein Albumin Lipase TSH Free T4 Free T3 pg/mL Urine Opiates Screen Urine Methadone Screen Ur Barbiturates Screen Ur Phencyclidine Scrn Ur Amphetamines Screen U Benzodiazepines Scrn Urine Cocaine Screen U Marijuana (THC) Screen 07/24/19 07/24/19 07/24/19 05:37 05:37 08:20 WBC RBC Hgb Hct MCV MCH MCHC RDW Plt Count Lymph % (Auto) Conway % (Auto) Eos % (Auto) Baso % (Auto) Absolute Neuts (auto) Absolute Lymphs (auto) Absolute Monos (auto) Absolute Eos (auto) Absolute Basos (auto) Seg Neutrophils % Sodium 139.4 Potassium 4.3 Chloride 106 Carbon Dioxide 26 Anion Gap 7 BUN 12 Creatinine 0.63 Est GFR ( Amer) > 60 Est GFR (MDRD) Non-Af > 60 Glucose 85 Hemoglobin A1c % 5.4 Calcium 9.3 Magnesium Total Bilirubin Direct Bilirubin Neonat Total Bilirubin Neonat Direct Bilirubin Neonat Indirect Bili AST ALT Alkaline Phosphatase Creatine Kinase CK-MB (CK-2) Troponin I Total Protein Albumin Lipase TSH Free T4 Free T3 pg/mL Urine Opiates Screen NEGATIVE Urine Methadone Screen NEGATIVE Ur Barbiturates Screen NEGATIVE Ur Phencyclidine Scrn NEGATIVE Ur Amphetamines Screen NEGATIVE U Benzodiazepines Scrn NEGATIVE Urine Cocaine Screen NEGATIVE U Marijuana (THC) Screen NEGATIVE Chest X-Ray 07/23/19 10:10 IMPRESSION: NO ACUTE RADIOGRAPHIC FINDING IN THE CHEST. EKG: The patient's admission EKG shows junctional tachycardia. Rate related ST depression. Borderline left axis deviation. The patient is EKG from today show s sinus rhythm. Within normal limits. ECHOCARDIOGRAM: Note no to 2 chamber apical views obtained. Hence cannot comment on the apical anterior and the basal anterior tristan and also the apical inferior and the basal inferior tristan. The mid inferior and mid anterior and the rest of the LV tristan contract normally. There is no aortic stenosis or aortic regurgitation. There is trace tricuspid regurgitation. Unable to calculate right ventricle systolic pressure due to insufficient TR jet. There is no mitral stenosis or mitral prolapse. Echo, EKG, and lab results discussed with the patient in detail. IMPRESSION/RECOMMENDATION: 1. Junctional tachycardia: Paroxysmal. Patient at present sinus rhythm. Would recommend starting the patient on Toprol-XL 25 mg p.o. daily. Would recommend outpatient 30-day event monitor to see if there is recurrence of junctional tachycardia. Also would recommend the patient have IV Lexiscan Cardiolite stress test as an outpatient. 2. Probably has mild hypertension. 3. Systolic "flow murmur". 4. No evidence of acute coronary syndrome or biomarkers elevation suggestive of acute coronary syndrome. EKG is within normal limits. Medications reviewed. Medications added. Medication regimen and plan of management plan discussed with attending physician. Medical decision making is of moderate complexity. 60 minutes spent on this patient more than 50% of time spent in direct patient care. The patient desires to follow-up with me in the office. We will make arrangements for the patient to follow-up with me. Contact numbers given to the patient.
--- NOTE | 2019-07-25 00:22 | EKG REPORT ---
SEVERITY:- ABNORMAL ECG - JUNCTIONAL TACHYCARDIA BORDERLINE LEFT AXIS DEVIATION ST DEPRESSION, CONSIDER ISCHEMIA, ANT-LAT LDS : Confirmed by: Hay Ramos 25-Jul-2019 00:21:31
--- NOTE | 2019-07-25 00:22 | EKG REPORT ---
SEVERITY:- NORMAL ECG - SINUS RHYTHM : Confirmed by: Hay Ramos 25-Jul-2019 00:21:17
[2019-07-25] MEDS ORDERED: INFLUENZA QUAD (6MOS+) 2019-20 VAC 0.5 ML SYR IM ONE (08:00)
[2019-07-25] MEDS ORDERED: METOPROLOL SUCCINATE 25 MG TAB.SR.24H PO SCH (10:00)
--- NOTE | 2019-07-25 18:17 | PDOC DISCHARGE SUMMARY ---
Impression - Admit/DC Date/PCP Admission Date/Primary Care Provider: 07/23/19 13:00 ASHLEY UMANZOR MD Discharge Date: 07/24/19 - Discharge Diagnosis (1) Chest pain Is this a current diagnosis for this admission?: Yes (2) Junctional tachycardia Is this a current diagnosis for this admission?: Yes (3) Hypertension Is this a current diagnosis for this admission?: Yes (4) Elevated troponin Is this a current diagnosis for this admission?: Yes - Additional Information Discharge Diet: As Tolerated Referrals: JOSE MELENDEZ MD [ACTIVE STAFF] - STAR SHEN MD [NO LOCAL MD] - Follow up as needed Prescriptions: Aspirin [Aspirin 81 mg Chewable Tablet] 81 mg PO DAILY 30 Days #30 tab.chew Metoprolol Succinate [Toprol Xl 25 mg Tab.sr] 25 mg PO DAILY 30 Days #30 tab.sr.24h Home Medications: Diphenhydramine HCl [Benadryl] 25 mg PO HSP PRN 07/23/19 Ibuprofen/Diphenhydramine HCl [Advil Pm Liqui-Gels] 1 each PO QHS 07/23/19 Aspirin [Aspirin 81 mg Chewable Tablet] 81 mg PO DAILY 30 Days #30 tab.chew 07/24/19 Metoprolol Succinate [Toprol Xl 25 mg Tab.sr] 25 mg PO DAILY 30 Days #30 tab.sr.24h 07/24/19 History of Present Illiness History of Present Illness: LEORA VILLAVICENCIO is a 64 year old female with no significant past medical history and not taking any medication except for multiple surgeries in the past, presented to ED complaining of chest pain. Patient stating when he got to work today she was doing fine but suddenly started having pressure-like left-sided chest pain radiating to her back, associated with dizziness, palpitation, cold sweats and nausea. She feels pressure-like chest pain within 10 minutes intermittently lasting about 1 to 2 minutes each time. Chest pain got resolved after she was given sublingual nitroglycerin by EMS. Patient not very active because of her multiple bilateral lower extremity surgeries however she denies any orthopnea, paroxysmal nocturnal dyspnea, dyspnea on exertion, weight changes, pillow orthopnea. Patient is adopted and could not provide any family history. In ED she was noted to have junctional tachycardia was allowed to get be given some beta-blockers however she converted to sinus rhythm on her own. Follow-up EKG was sinus rhythm with no acute changes. Initial troponin was negative however the second troponin was mildly elevated. Hospitalist was consulted for admission. Hospital Course Hospital Course: (1) Chest pain HEART Score of 7 Patient could provide any family history as she is adopted. No significant past medical history who presented with very typical chest pain. Stat echo ordered. Cardiology consulted. Admitted to telemetry, antiplatelets, beta-blockers, GEORGE, statins. Troponins trended <0.012, 0.021, 0.080, 0.071, 0.051. As per cardiology assessment no evidence of acute coronary syndrome or by myocardial elevation suggestive of acute coronary syndrome. Please refer to note. (2) Junctional tachycardia Patient presents with sinus rhythm with no intervention. Admited to telemetry, trend troponins, antiplatelets, beta-blockers, cardiology consult. As per cardiology recommendation patient was discharged on beta-blockers and encouraged to follow-up with Dr. Melendez as outpatient for a 30-day event monitor. Patient voiced understanding. (3) Hypertension Denies any history of hypertension however has noted to be hypertensive on this admission. Initially started on GEORGE, switch to beta-blockers. Normotensive and euvolemic at the time of discharge. (4) Elevated troponin Likely elevated due to ACS VS junctional tachycardia. Plan as per 1 and 2. Physical Exam Vital Signs: Temp Pulse Resp BP Pulse Ox 97.7 F 80 16 143/62 H 98 07/24/19 16:04 07/24/19 16:04 07/24/19 16:04 07/24/19 16:04 07/24/19 16:04 Intake & Output 07/24/19 07/25/19 07/26/19 06:59 06:59 06:59 Intake Total 1400 375 Balance 1400 375 Weight 110 kg Results Laboratory Results: WBC 7.0 10^3/uL (4.0-10.5) 07/24/19 05:37 RBC 4.47 10^6/uL (3.72-5.28) 07/24/19 05:37 Hgb 13.4 g/dL (12.0-15.5) 07/24/19 05:37 Hct 40.5 % (36.0-47.0) 07/24/19 05:37 MCV 91 fl (80-97) 07/24/19 05:37 MCH 30.0 pg (27.0-33.4) 07/24/19 05:37 MCHC 33.1 g/dL (32.0-36.0) 07/24/19 05:37 RDW 13.2 % (11.5-14.0) 07/24/19 05:37 Plt Count 202 10^3/uL (150-450) 07/24/19 05:37 Lymph % (Auto) 30.2 % (13-45) 07/24/19 05:37 [place]oux % (Auto) 10.0 % (3-13) 07/24/19 05:37 Eos % (Auto) 3.3 % (0-6) 07/24/19 05:37 Baso % (Auto) 0.8 % (0-2) 07/24/19 05:37 Absolute Neuts (auto) 3.9 10^3/uL (1.7-8.2) 07/24/19 05:37 Absolute Lymphs (auto) 2.1 10^3/uL (0.5-4.7) 07/24/19 05:37 Absolute Monos (auto) 0.7 10^3/uL (0.1-1.4) 07/24/19 05:37 Absolute Eos (auto) 0.2 10^3/uL (0.0-0.6) 07/24/19 05:37 Absolute Basos (auto) 0.1 10^3/uL (0.0-0.2) 07/24/19 05:37 Seg Neutrophils % 55.7 % (42-78) 07/24/19 05:37 Sodium 139.4 mmol/L (137-145) 07/24/19 05:37 Potassium 4.3 mmol/L (3.6-5.0) 07/24/19 05:37 Chloride 106 mmol/L (98-107) 07/24/19 05:37 Carbon Dioxide 26 mmol/L (22-30) 07/24/19 05:37 Anion Gap 7 (5-19) 07/24/19 05:37 BUN 12 mg/dL (7-20) 07/24/19 05:37 Creatinine 0.63 mg/dL (0.52-1.25) 07/24/19 05:37 Est GFR ( Amer) > 60 (>60) 07/24/19 05:37 Est GFR (MDRD) Non-Af > 60 (>60) 07/24/19 05:37 Glucose 85 mg/dL (75-110) 07/24/19 05:37 Hemoglobin A1c % 5.4 % (4.7-6.0) 07/24/19 05:37 Calcium 9.3 mg/dL (8.4-10.2) 07/24/19 05:37 Magnesium 2.3 mg/dL (1.6-2.3) 07/24/19 05:37 Total Bilirubin 0.9 mg/dL (0.2-1.3) 07/23/19 09:30 Direct Bilirubin 0.2 mg/dL (0.0-0.4) 07/23/19 09:30 Neonat Total Bilirubin Not Reportable 07/23/19 09:30 Neonat Direct Bilirubin Not Reportable 07/23/19 09:30 Neonat Indirect Bili Not Reportable 07/23/19 09:30 AST 57 U/L (14-36) H 07/23/19 09:30 ALT 46 U/L (<35) 07/23/19 09:30 Alkaline Phosphatase 107 U/L (38-126) 07/23/19 09:30 Creatine Kinase 96 U/L (30-135) 07/23/19 09:30 CK-MB (CK-2) 0.62 ng/mL (<4.55) 07/23/19 09:30 Troponin I 0.051 ng/mL 07/24/19 05:37 Total Protein 7.6 g/dL (6.3-8.2) 07/23/19 09:30 Albumin 4.3 g/dL (3.5-5.0) 07/23/19 09:30 Lipase 103.9 U/L (23-300) 07/23/19 17:15 TSH 2.65 uIU/mL (0.47-4.68) 07/23/19 11:24 Free T4 1.19 ng/dL (0.78-2.19) 07/23/19 11:24 Free T3 pg/mL 3.53 pg/mL (2.77-5.27) 07/23/19 11:24 Urine Opiates Screen NEGATIVE 07/24/19 08:20 Urine Methadone Screen NEGATIVE 07/24/19 08:20 Ur Barbiturates Screen NEGATIVE 07/24/19 08:20 Ur Phencyclidine Scrn NEGATIVE 07/24/19 08:20 Ur Amphetamines Screen NEGATIVE 07/24/19 08:20 U Benzodiazepines Scrn NEGATIVE 07/24/19 08:20 Urine Cocaine Screen NEGATIVE 07/24/19 08:20 U Marijuana (THC) Screen NEGATIVE 07/24/19 08:20 07/23/19 07/23/19 07/23/19 09:30 11:24 17:15 CK-MB (CK-2) 0.62 Troponin I < 0.012 0.021 0.080 07/23/19 07/24/19 23:16 05:37 CK-MB (CK-2) Troponin I 0.071 0.051 Impressions: Chest X-Ray 07/23/19 10:10 IMPRESSION: NO ACUTE RADIOGRAPHIC FINDING IN THE CHEST. Stroke Is this a Stroke Patient?: No Acute Heart Failure - Is this a Heart Failure Patient?: No
== END 2019-07-24 17:21 | disposition home or self-care (01) ==
LOC: ER 09:46 → EH 13:00 → INTOOBSV 13:00 → 3S 21:35
PROVIDERS: ADMIT Internal Medicine; ATTEND Internal Medicine
DX: R07.89 Other chest pain (principal); I47.1 Supraventricular tachycardia; I10 Essential (primary) hypertension; R79.89 Other specified abnormal findings of blood chemistry; R61 Generalized hyperhidrosis; E66.9 Obesity, unspecified; E66.01 Morbid (severe) obesity due to excess calories; M13.861 Other specified arthritis, right knee; Z98.890 Other specified postprocedural states
CPT/HCPCS: 93005; 99291; 96360; 36415 ×2; 84439; 82553; 82550; 83690; 83735; 84443; 85025 ×2; 80048; 80053; 84484 ×2; 80307; 84481; 83036; 93306; 71045; 93010; G0378 ×3; A9270 ×9; J7030; J3490

== ENCOUNTER → 2019-08-25 | Outpatient (CLI) | payer MEDICARE ==
[~2019-08-25] MED LIST changes: +AMINOPHYLLINE INJ/PF 250 MG/10 ML SDV IV ONE; -CEFAZOLIN 2 GM/D5W RTU 2 GM/50 ML RTUPB IV PRN; -LACTATED RINGERS 1000 ML IV PRN; -LIDOCAINE 0.5% INJ-PF (5 MG/ML) 50 ML SDV SUBCUT PRN; +REGADENOSON INJ 0.4 MG/5 ML DISP.SYRIN IV ONE
== END ==
LOC: RAD 08:04
PROVIDERS: ATTEND Specialist
DX: R07.9 Chest pain, unspecified (principal)
CPT/HCPCS: 93017; 78452; A9500; J2785; J0280; Q9969

== ENCOUNTER → 2019-10-14 | Outpatient (CLI) | payer MEDICARE ==
[2019-10-14 12:15] LABS: ABSOLUTE BASOPHILS # (AUTO) 0.1 10^3/uL (0.0-0.2); ABSOLUTE EOSINOPHILS # (AUTO) 0.1 10^3/uL (0.0-0.6); ABSOLUTE LYMPHOCYTES (AUTO) 1.6 10^3/uL (0.5-4.7); ABSOLUTE MONOCYTES (AUTO) 0.7 10^3/uL (0.1-1.4); ABSOLUTE NEUT (AUTO) 5.2 10^3/uL (1.7-8.2); BASOPHILS % (AUTO) 0.9 % (0-2); EOSINOPHILS % (AUTO) 1.9 % (0-6); HEMATOCRIT 43.2 % (36.0-47.0); HEMOGLOBIN 14.8 g/dL (12.0-15.5); MEAN CORPUSCULAR HEMOGLOBIN 30.2 pg (27.0-33.4); MEAN CORPUSCULAR HGB CONC 34.3 g/dL (32.0-36.0); MEAN CORPUSCULAR VOLUME 88 fl (80-97); MONOCYTES % (AUTO) 8.6 % (3-13); PLATELET COUNT 200 10^3/uL (150-450); RED CELL DISTRIBUTION WIDTH 12.9 % (11.5-14.0); SEGMENTED NEUTROPHILS % (AUTO) 67.6 % (42-78); TOTAL CELLS COUNTED % (AUTO) 100 %; WHITE BLOOD COUNT 7.7 10^3/uL (4.0-10.5)
[2019-10-14 12:37] LABS: ANION GAP 11 (5-19); BLOOD UREA NITROGEN 12 mg/dL (7-20); CALCIUM 10.1 mg/dL (8.4-10.2); CARBON DIOXIDE 25 mmol/L (22-30); CHLORIDE 105 mmol/L (98-107); GLUCOSE 94 mg/dL (75-110); POTASSIUM 4.4 mmol/L (3.6-5.0)
[2019-10-14 13:15] LABS: APPEARANCE,URINE SLIGHTLY-CLOUDY; BILIRUBIN,URINE NEGATIVE (NEGATIVE); COLOR,URINE YELLOW; GLUCOSE, URINE NEGATIVE (NEGATIVE); KETONES,URINE NEGATIVE (NEGATIVE); LEUKOCYTE ESTERASE,URINE LARGE (NEGATIVE); NITRITE,URINE NEGATIVE (NEGATIVE); PROTEIN,URINE NEGATIVE (NEGATIVE); URINE SPECIFIC GRAVITY 1.011; UROBILINOGEN,URINE NEGATIVE mg/dL (<2.0)
--- NOTE | 2019-10-14 14:27 | RADIOLOGY REPORT (SQ) ---
EXAM DESCRIPTION: CHEST PA/LATERAL COMPLETED DATE/TIME: 10/14/2019 12:35 pm REASON FOR STUDY: PRE-OP COMPARISON: 07/23/2019 EXAM PARAMETERS: NUMBER OF VIEWS: two views TECHNIQUE: Digital Frontal and Lateral radiographic views of the chest acquired. RADIATION DOSE: NA LIMITATIONS: none FINDINGS: LUNGS AND PLEURA: Chronic elevation right diaphragm. No opacities, masses or pneumothorax . No pleural effusion. MEDIASTINUM AND HILAR STRUCTURES: No masses or contour abnormalities. HEART AND VASCULAR STRUCTURES: Heart normal size. No evidence for failure. BONES: No acute findings. HARDWARE: None in the chest. OTHER: No other significant finding. IMPRESSION: No acute findings in the chest. TECHNICAL DOCUMENTATION: JOB ID: [id number] [employer]- All Rights Reserved Reading location - IP/workstation name: [email or web address]
--- NOTE | 2019-10-14 21:57 | EKG REPORT ---
SEVERITY:- NORMAL ECG - SINUS RHYTHM : Confirmed by: Hay Ramos 14-Oct-2019 21:56:49
== END ==
LOC: OD 11:27
PROVIDERS: ATTEND Orthopaedic Surgery
DX: Z01.810 Encounter for preprocedural cardiovascular examination (principal); Z01.811 Encounter for preprocedural respiratory examination; Z01.812 Encounter for preprocedural laboratory examination; M17.11 Unilateral primary osteoarthritis, right knee
CPT/HCPCS: 36415; 71046; 80048; 81001; 85025; 93005; 93010

== ENCOUNTER 2019-11-01 05:28 | Day surgery (SDC) | payer MEDICARE ==
[~2019-11-01 05:28] MED LIST changes: -AMINOPHYLLINE INJ/PF 250 MG/10 ML SDV IV ONE; +BUPIVACAINE INJ/PF LIPOSOME/PF 266 MG/20 ML SDV INJ PRN; +CEFAZOLIN INJ 1 GM VIAL IV PRN; +IBUPROFEN 800 MG in NORMAL SALINE 250 ML IV PRN; +LACTATED RINGERS 1000 ML IV PRN; +OXYCODONE HCL SR 10 MG TABLET PO PRN; +PANTOPRAZOLE SODIUM 20 MG TABLET.DR PO PRN; -REGADENOSON INJ 0.4 MG/5 ML DISP.SYRIN IV ONE; +VANCOMYCIN HCL 1,000 MG in DEXTROSE 5%-WATER 250 ML IV PRN
[2019-11-01] MEDS ORDERED: OXYCODONE HCL SR 10 MG TABLET PO ONE (06:09)
[2019-11-01] MEDS ORDERED: PANTOPRAZOLE SODIUM 20 MG TABLET.DR PO ONE (06:09)
[2019-11-01] MEDS ORDERED: CEFAZOLIN 1 GM/D5W RTU 1 GM/50 ML RTUPB IV ONE (06:09)
[2019-11-01] MEDS ORDERED: DIPHENHYDRAMINE HCL 50 MG/ML VIAL ONE (06:40)
[2019-11-01] MEDS ORDERED: ONDANSETRON HCL INJ/PF 4 MG/2 ML SDV ONE (06:41)
[2019-11-01] MEDS ORDERED: MIDAZOLAM 2 MG/2 ML INJ ONE (06:41)
[2019-11-01] MEDS ORDERED: KETOROLAC TROMETHAMINE 60 MG/2 ML SDV ONE (06:41)
[2019-11-01] MEDS ORDERED: PROPOFOL INJ 200 MG/20 ML VIAL IV ONE (06:41)
[2019-11-01] MEDS ORDERED: FENTANYL CITRATE INJ/PF 100 MCG/2 ML AMPUL ONE (06:41)
[2019-11-01] MEDS ORDERED: DEXMEDETOMIDINE INJ 80 MCG/20 ML VIAL IV ONE (06:57)
[2019-11-01] MEDS ORDERED: LIDOCAINE 2% INJ-PF (20 MG/ML) 10 ML AMPUL ONE (06:58)
[2019-11-01] MEDS ORDERED: BUPIVACAINE INJ/PF LIPOSOME/PF 266 MG/20 ML SDV ONE (07:05)
[2019-11-01] MEDS ORDERED: BACITRACIN INJ 50,000 UNIT VIAL ONE (07:12)
[2019-11-01] MEDS ORDERED: ONDANSETRON 4 MG TAB.RAPDIS PO PRN (08:28)
[2019-11-01] MEDS ORDERED: MAG HYDROX/AL HYDROX/SIMETH SUSP 30 ML UDCUP PO PRN (08:28)
[2019-11-01] MEDS ORDERED: ONDANSETRON HCL INJ/PF 4 MG/2 ML SDV IV PRN ×2 (08:28→08:42)
[2019-11-01] MEDS ORDERED: DIPHENHYDRAMINE HCL 50 MG/ML VIAL IV PRN ×2 (08:28→08:42)
[2019-11-01] MEDS ORDERED: RINGERS SOLUTION,LACTATED 1,000 ML IV PRN (08:28)
[2019-11-01] MEDS ORDERED: ZOLPIDEM TARTRATE 5 MG TABLET PO PRN (08:28)
--- NOTE | 2019-11-01 08:33 | Operative Report ---
Operative Report DATE OF SURGERY: 11/01/19 PREOPERATIVE DIAGNOSIS: Right knee arthritis OPERATION: Right knee arthroplasty SURGEON: EMILE GARCIA ANESTHESIA: Spinal TISSUE REMOVED OR ALTERED: Bone to pathology ESTIMATED BLOOD LOSS: 75 PROCEDURE: Implants used: Femur: [place] triathlon size 4 uncemented CR femur Tibia: 4 uncemented tibia Tibial liner: 9 mm CS insert Patella: 35 mm uncemented patella Procedure with the patient supine on the operating table the right the limb is prepped and draped in a sterile fashion. The limb was elevated for exsanguination and the tourniquet inflated to 280 torr. A standard midline median parapatellar approach the knee is taken. Access is gained to the femoral canal through the intercondylar notch. Intramedullary alignment instrumentation used to resect 8 mm of distal femur in 5 of valgus. Sizing guide indicated a size 4 femur. Appropriate cutting jig is then used to fashion anterior posterior and chamfer cuts. A trial reduction femurs performed and this is judged to be adequate. Attention was next turned to the tibia. Using an extra medullary alignment system 9 millimeters was resected off the lateral tibial plateau. This is sized to a size 4 tibia. A trial reduction was now performed with a 4 femur and a 4 tibia using a 9 millimeters spacer. It is full extension and central patellofemoral tracking. The articular surface the patella was next resected using an oscillating saw. All trial implants were removed. The above implants were impacted into position. The tourniquet was deflated hemostasis obtained the wound is then closed in layers using interrupted Vicryl followed by hamlet. A sterile compressive dressing was applied and the patient returned to recovery room in satisfactory condition.
[2019-11-01] MEDS ORDERED: TRANEXAMIC ACID INJ/PF 1,000 MG/10 ML SDV ONE (08:41)
[2019-11-01] MEDS ORDERED: MORPHINE SULFATE 10 MG/ML INJ IV PRN (08:42)
[2019-11-01] MEDS ORDERED: FENTANYL CITRATE INJ/PF 100 MCG/2 ML AMPUL IV PRN ×3 (08:42)
[2019-11-01] MEDS ORDERED: PROMETHAZINE HCL INJ 25 MG/1 ML VIAL IV PRN ×2 (08:42)
[2019-11-01] MEDS ORDERED: MEPERIDINE HCL/PF INJ 25 MG/1 ML DISP.SYRIN IV PRN (08:42)
[2019-11-01] MEDS ORDERED: OXYCODONE-ACETAMINOPHEN 5-325 MG TABLET PO PRN ×2 (08:42)
--- NOTE | 2019-11-01 09:43 | RADIOLOGY REPORT (SQ) ---
EXAM DESCRIPTION: KNEE RIGHT 2 VIEWS COMPLETED DATE/TIME: 11/01/2019 9:23 am REASON FOR STUDY: Post OP -Long Cassette in PACU M17.11 UNILATERAL PRIMARY OSTEOARTHRITIS, RIGHT KN EE COMPARISON: 11/26/2017 NUMBER OF VIEWS: Two view(s). TECHNIQUE: Digital radiographic images of the right knee post-procedure. LIMITATIONS: None. FINDINGS: BONES: No worrisome or unexpected findings post-procedure. DEVICE: Total knee arthroplasty SOFT TISSUES: No worrisome findings. Expected postoperative soft tissue changes. IMPRESSION: SATISFACTORY POSTOPERATIVE RIGHT KNEE. TECHNICAL DOCUMENTATION: JOB ID: [id number] [employer]- All Rights Reserved Reading location - IP/workstation name: [email or web address]
[2019-11-01] MEDS ORDERED: TRANEXAMIC ACID INJ/PF 1,000 MG/10 ML SDV IV ONE (10:00)
[2019-11-01] MEDS ORDERED: ASPIRIN 81 MG TABLET, CHEWABLE PO SCH (10:00)
[2019-11-01] MEDS: ACETAMINOPHEN 325 MG TABLET PO PRN ×2 (11:10→18:17)
[2019-11-01] MEDS: PRENATAL VITAMIN W DHA CAPSULE PO SCH (11:11)
[2019-11-01] MEDS: SENNOSIDES/DOCUSATE 8.6-50 MG 1 EACH TABLET PO SCH ×2 (11:11→18:20)
[2019-11-01] MEDS: ASPIRIN 81 MG TABLET, ENT COATED PO SCH (11:11)
[2019-11-01] MEDS: OXYCODONE HCL IR 5 MG TABLET PO PRN ×2 (11:12→18:17)
[2019-11-01] MEDS ORDERED: SUCCINYLCHOLINE CHLORIDE INJ 200 MG/10 ML VIAL ONE (12:27)
[2019-11-01] MEDS: IBUPROFEN 800 MG in NORMAL SALINE 250 ML IV SCH ×2 (14:21→21:42)
[2019-11-01] MEDS: OXYCODONE HCL SR 10 MG TABLET PO SCH (18:18)
[2019-11-01] MEDS ORDERED: VANCOMYCIN HCL 1,000 MG in DEXTROSE 5%-WATER 250 ML IV ONE (20:30)
[2019-11-02] MEDS: OXYCODONE HCL SR 10 MG TABLET PO SCH (05:25)
[2019-11-02] MEDS: IBUPROFEN 800 MG in NORMAL SALINE 250 ML IV SCH (05:25)
[2019-11-02 05:58] LABS: HEMATOCRIT 36.4 % (36.0-47.0); HEMOGLOBIN 12.5 g/dL (12.0-15.5); MEAN CORPUSCULAR HEMOGLOBIN 30.4 pg (27.0-33.4); MEAN CORPUSCULAR HGB CONC 34.5 g/dL (32.0-36.0); MEAN CORPUSCULAR VOLUME 88 fl (80-97); PLATELET COUNT 172 10^3/uL (150-450); RED BLOOD COUNT 4.13 10^6/uL (3.72-5.28); RED CELL DISTRIBUTION WIDTH 13.1 % (11.5-14.0); WHITE BLOOD COUNT 9.2 10^3/uL (4.0-10.5)
[2019-11-02] MEDS ORDERED: PANTOPRAZOLE SODIUM 40 MG TABLET.DR PO SCH (06:00)
[2019-11-02 06:22] LABS: ANION GAP 5 (5-19); BLOOD UREA NITROGEN 12 mg/dL (7-20); CALCIUM 9.1 mg/dL (8.4-10.2); CARBON DIOXIDE 31 mmol/L (22-30); CHLORIDE 105 mmol/L (98-107); GLUCOSE 92 mg/dL (75-110); POTASSIUM 4.9 mmol/L (3.6-5.0)
--- NOTE | 2019-11-02 06:59 | PDOC DISCHARGE SUMMARY ---
Impression - Admit/DC Date/PCP Admission Date/Primary Care Provider: 11/01/19 05:28 ANGELO VASQUEZ, SALES ASSOCIATE-C Discharge Date: 11/02/19 - Additional Information Resuscitation Status: Full Code Discharge Diet: Regular Discharge Activity: Balance Activity w/Rest, No tub bath Referrals: EMILE GARCIA MD [ACTIVE STAFF] - 11/16/19 9:00 am Home Medications: No Home Medications 11/01/19 History of Present Illiness History of Present Illness: LEORA VILLAVICENCIO is a 64 year old female Patient is a 64-year-old white female with progressive right knee pain and functional disability second osteoarthritis. Patient is admitted for elective right knee arthroplasty. Hospital Course Hospital Course: Patient is admitted through the operating room where she undergoes uncomplicated right knee arthroplasty. She is returned to floor in satisfactory condition. She ambulates 300 feet with physical therapy on the day of surgery. Pain is well controlled overnight. Compressive dressing was removed on the first postoperative morning. Underlying OpSite dressing is clean dry and intact. There is minimal pedal edema. Distal neurovascular examination is intact. Physical Exam Vital Signs: Temp Pulse Resp BP Pulse Ox 36.6 C 75 17 152/77 H 98 11/02/19 01:03 11/02/19 01:03 11/02/19 01:03 11/02/19 01:03 11/02/19 01:03 Intake & Output 10/31/19 11/01/19 11/02/19 06:59 06:59 06:59 Intake Total 250 3940 Output Total 20 Balance 250 3920 Weight 106.59 kg General appearance: PRESENT: no acute distress, obese Head exam: PRESENT: normocephalic Respiratory exam: PRESENT: unlabored Cardiovascular exam: PRESENT: RRR Pulses: PRESENT: +1 pedal pulses bilateral GI/Abdominal exam: PRESENT: soft Rectal exam: PRESENT: deferred Musculoskeletal exam: PRESENT: other - Right knee OpSite dressing is clean dry and intact. There is minimal pedal edema. Distal neurovascular examination is intact. Neurological exam: PRESENT: alert, awake, oriented to person, oriented to place, oriented to time, oriented to situation. ABSENT: motor sensory deficit Psychiatric exam: PRESENT: appropriate affect, normal mood. ABSENT: homicidal ideation, suicidal ideation Skin exam: PRESENT: dry, intact, warm. ABSENT: cyanosis, rash Results Laboratory Results: WBC 9.2 10^3/uL (4.0-10.5) 11/02/19 05:16 RBC 4.13 10^6/uL (3.72-5.28) 11/02/19 05:16 Hgb 12.5 g/dL (12.0-15.5) 11/02/19 05:16 Hct 36.4 % (36.0-47.0) 11/02/19 05:16 MCV 88 fl (80-97) 11/02/19 05:16 MCH 30.4 pg (27.0-33.4) 11/02/19 05:16 MCHC 34.5 g/dL (32.0-36.0) 11/02/19 05:16 RDW 13.1 % (11.5-14.0) 11/02/19 05:16 Plt Count 172 10^3/uL (150-450) 11/02/19 05:16 Sodium 141.1 mmol/L (137-145) 11/02/19 05:16 Potassium 4.9 mmol/L (3.6-5.0) 11/02/19 05:16 Chloride 105 mmol/L (98-107) 11/02/19 05:16 Carbon Dioxide 31 mmol/L (22-30) H 11/02/19 05:16 Anion Gap 5 (5-19) 11/02/19 05:16 BUN 12 mg/dL (7-20) 11/02/19 05:16 Creatinine 0.64 mg/dL (0.52-1.25) 11/02/19 05:16 Est GFR ( Amer) > 60 (>60) 11/02/19 05:16 Est GFR (MDRD) Non-Af > 60 (>60) 11/02/19 05:16 Glucose 92 mg/dL (75-110) 11/02/19 05:16 Calcium 9.1 mg/dL (8.4-10.2) 11/02/19 05:16 Impressions: Knee X-Ray 11/01/19 08:30 IMPRESSION: SATISFACTORY POSTOPERATIVE RIGHT KNEE. Plan Plan of Treatment: Patient be discharged home on a weightbearing as tolerated basis with home health services and DME. Follow-up with Dr. Garcia and [facility] for surgery in 2 weeks for staple removal. Time Spent: Less than 30 Minutes Stroke Is this a Stroke Patient?: No Stroke Pt being discharged on Anti-thrombolytic therapy?: Yes Acute Heart Failure - Is this a Heart Failure Patient?: No
[2019-11-02] MEDS: ASPIRIN 81 MG TABLET, ENT COATED PO SCH (09:39)
[2019-11-02] MEDS: PRENATAL VITAMIN W DHA CAPSULE PO SCH (09:39)
[2019-11-02] MEDS: SENNOSIDES/DOCUSATE 8.6-50 MG 1 EACH TABLET PO SCH (09:39)
[2019-11-02 11:59] VITALS: BP 133/67
== END 2019-11-02 12:48 | disposition home or self-care (01) ==
LOC: OROUT 05:28 → UNDOADMIN 05:28 → INOR 05:28 → EDSTATUS 07:30 → 4S 10:25 → INOR 10:25 → UNDODISIN 11-02 12:48 → OROUT 11-02 12:48
PROVIDERS: ATTEND Orthopaedic Surgery
DX: M17.11 Unilateral primary osteoarthritis, right knee (principal); M25.561 Pain in right knee; E66.3 Overweight; Z68.36 Body mass index [BMI] 36.0-36.9, adult
CPT/HCPCS: 36415; 85027; 80048; 88305 ×2; 88311; 73560; 94799; 97530 ×2; 97110 ×2; 97116 ×2; 97163; 97535; 97166; 01402; 27447; C1776; A9270 ×13; J2250; J3490 ×6; J0690; J1200; J0330; J2405; J7060; J7050; J7120; J2704; J3370; C9290; J1741; J1885; J3010

== ENCOUNTER 2020-03-31 12:58 | Emergency (ER) | payer MEDICARE ==
[2020-03-31 13:33] LABS: ABSOLUTE BASOPHILS # (AUTO) 0.1 10^3/uL (0.0-0.2); ABSOLUTE EOSINOPHILS # (AUTO) 0.2 10^3/uL (0.0-0.6); ABSOLUTE MONOCYTES (AUTO) 0.9 10^3/uL (0.1-1.4); ABSOLUTE NEUT (AUTO) 5.7 10^3/uL (1.7-8.2); BASOPHILS % (AUTO) 1.3 % (0-2); EOSINOPHILS % (AUTO) 2.1 % (0-6); HEMATOCRIT 42.1 % (36.0-47.0); HEMOGLOBIN 14.6 g/dL (12.0-15.5); LYMPHOCYTES % (AUTO) 22.3 % (13-45); MEAN CORPUSCULAR HEMOGLOBIN 30.4 pg (27.0-33.4); MEAN CORPUSCULAR HGB CONC 34.7 g/dL (32.0-36.0); MEAN CORPUSCULAR VOLUME 88 fl (80-97); MONOCYTES % (AUTO) 9.7 % (3-13); PLATELET COUNT 234 10^3/uL (150-450); RED CELL DISTRIBUTION WIDTH 13.7 % (11.5-14.0); SEGMENTED NEUTROPHILS % (AUTO) 64.6 % (42-78); TOTAL CELLS COUNTED % (AUTO) 100 %; WHITE BLOOD COUNT 8.8 10^3/uL (4.0-10.5)
--- NOTE | 2020-03-31 13:48 | ER Document Report ---
ED General - General Chief Complaint: Chest Pain Stated Complaint: CHEST PAIN Time Seen by Provider: 03/31/20 13:28 Primary Care Provider: ANGELO VASQUEZ FNP-C [Primary Care Provider] - Follow up as needed Mode of Arrival: Medic Information source: Patient, Emergency Med Personnel Notes: 64-year-old female arrives by EMS after awakening her because of a crushing sensation to her chest as she is preparing for a meal. Patient reports a 10 out of 10 pain and her placed her on a monitor which revealed a normal blood pressure but a 98 pulse. They advised EMS. She reports she had similar episode back in July 2019 in which her troponin was elevated and she was hospitalized and placed in a stress test. She reports the heart do ctor was a doctor but cannot recall his name. Today patient denied any referral into her back or into her neck but did have some mild shortness of breath and diaphoresis. She felt" hot and sweaty." TRAVEL OUTSIDE OF THE [place] IN LAST 30 DAYS: No - HPI Onset: Just prior to arrival Onset/Duration: Sudden, Better - After patient received 3 nitroglycerin tablets and one aspirin 324 mg p.o. prior to arrival Quality of pain: Achy, Other - Patient complains of dorsal headache as well as a drunken sensation. - Related Data Allergies/Adverse Reactions: animal dander Allergy (Verified 11/01/19 06:31) pollen extracts Allergy (Verified 11/01/19 06:31) shellfish derived Allergy (Verified 11/01/19 06:03) Anaphylaxis Past Medical History - General Information source: Patient - Social History Smoking Status: Never Smoker Cigarette use (# per day): No Chew tobacco use (# tins/day): No Smoking Education Provided: No Frequency of alcohol use: Occasional Drug Abuse: None Lives with: Family Family History: Reviewed & Not Pertinent Patient has suicidal ideation: No Patient has homicidal ideation: No - Past Medical History Cardiac Medical History: Denies: Hx Atrial Fibrillation, Hx Congestive Heart Failure, Hx Coronary Artery Disease, Hx Heart Attack, Hx Hypercholesterolemia, Hx Hypertension, Hx Peripheral Vascular Disease, Hx Heart Murmur Pulmonary Medical History: Denies: Hx Asthma, Hx Bronchitis, Hx COPD, Hx Pneumonia, Hx Sleep Apnea Neurological Medical History: Denies: Hx Cerebrovascular Accident, Hx Seizures Endocrine Medical History: Denies: Hx Hyperthyroidism, Hx Hypothyroidism Renal/ Medical History: Denies: Hx Kidney Stones, Hx Peritoneal Dialysis Malignancy Medical History: Denies: Hx Leukemia GI Medical History: Denies: Hx Crohn's Disease, Hx Gastroesophageal Reflux Disease, Hx Hiatal Hernia, Hx Irritable Bowel, Hx Liver Failure, Hx Pancreatitis, Hx Ulcer Musculoskeletal Medical History: Reports Hx Arthritis - right knee, Denies Hx Fibromyalgia, Denies Hx Muscular Dystrophy Psychiatric Medical History: Denies: Hx Bipolar Disorder, Hx Post Traumatic Stress Disorder Traumatic Medical History: Denies: Hx Fractures Infectious Medical History: Denies: Hx HIV Past Surgical History: Reports: Hx Appendectomy, Hx Section - x2, Hx Cholecystectomy, Hx Gastric Bypass Surgery - banding, Hx Hysterectomy, Hx Orthopedic Surgery - Left knee, Carpal Tunnel surgery, Hx Tonsillectomy. Denies: Hx Bowel Surgery, Hx Colostomy, Hx Coronary Artery Bypass Graft, Hx Herniorrhaphy, Hx Mastectomy, Hx Pacemaker, Hx Tubal Ligation - Immunizations Hx Diphtheria, Pertussis, Tetanus Vaccination: No Review of Systems - Review of Systems Constitutional: No symptoms reported EENT: No symptoms reported Cardiovascular: See HPI, Chest pain, Lightheaded Respiratory: No symptoms reported Gastrointestinal: See HPI, Nausea Genitourinary: No symptoms reported Female Genitourinary: No symptoms reported Musculoskeletal: No symptoms reported Skin: No symptoms reported Hematologic/Lymphatic: No symptoms reported Neurological/Psychological: See HPI, Weakness, Headaches Physical Exam - Vital signs Vitals: Pulse Ox 98 03/31/20 13:07 Interpretation: Normal - General General appearance: Appears well, Alert - HEENT Head: Normocephalic, Atraumatic Eyes: Normal Pupils: PERRL Mouth/Lips: Normal Mucous membranes: Normal Pharynx: Normal Neck: Normal - Respiratory Respiratory status: No respiratory distress Chest status: Nontender Breath sounds: Normal Chest palpation: Normal - Cardiovascular Rhythm: Regular Heart sounds: Normal auscultation Murmur: No - Abdominal Inspection: Normal Distension: No distension Bowel sounds: Normal Tenderness: Nontender Organomegaly: No organomegaly - Rectal Hemorrhoids: Other - deferred - Genitourinary Bimanuel exam: Other - deferred - Back Back: Normal - Extremities General upper extremity: Normal inspection, Nontender, Normal color, Normal ROM, Normal temperature General lower extremity: Normal inspection, Nontender, Normal color, Normal ROM, Normal temperature, Normal weight bearing. No: Ailyn's sign - Neurological Neuro grossly intact: Yes Cognition: Normal Orientation: AAOx4 Laureen Coma Scale Eye Opening: Spontaneous Laureen Coma Scale Verbal: Oriented [place] Coma Scale Motor: Obeys Commands Laureen Coma Scale Total: 15 Speech: Normal Motor strength normal: LUE, RUE, LLE, RLE Sensory: Normal - Psychological Associated symptoms: Normal affect - Skin Skin Temperature: Warm Skin Moisture: Dry Course - Vital Signs Vital signs: Temp Pulse Resp BP Pulse Ox 97.5 F 15 121/63 95 03/31/20 14:53 03/31/20 14:46 03/31/20 14:46 03/31/20 14:46 - Laboratory Result Diagrams: 03/31/20 13:25 03/31/20 13:25 Laboratory results interpreted by me: 03/31/20 13:25 AST 39 H Critical Care Note - Critical Care Note Total time excluding time spent on procedures (mins): 90 Comments: I discussed this case with Dr. Cook and he advised he will see this patient in office call for appointment on Friday. Second troponin was also within normal limits. I advised patient to follow-up with Dr. Cook or with Dr. Bell Discharge - Discharge Clinical Impression: Angina at rest Chest pain Qualifiers: Chest pain type: unspecified Qualified Code(s): R07.9 - Chest pain, unspecified Condition: Good Disposition: HOME, SELF-CARE Additional Instructions: Follow-up with Dr. Cook swager operator on Friday or with Dr. Bell. Take aspirin 81 mg 1 tablet daily and also take propranolol 20 mg twice a day until seen by swager operator Prescriptions: Propranolol HCl [Inderal 20 mg Tablet] 20 mg PO BID #10 tablet Referrals: ANGELO VASQUEZ FNP-C [Primary Care Provider] - Follow up as needed
[2020-03-31 13:52] LABS: ALBUMIN 4.1 g/dL (3.5-5.0); ALKALINE PHOSPHATASE 92 U/L (38-126); ANION GAP 7 (5-19); ASPARTATE AMINO TRANSFERASE 39 U/L (14-36); BILIRUBIN,TOTAL 0.7 mg/dL (0.2-1.3); BLOOD UREA NITROGEN 10 mg/dL (7-20); CARBON DIOXIDE 25 mmol/L (22-30); CHLORIDE 105 mmol/L (98-107); CREATINE KINASE 44 U/L (30-135); GLUCOSE 94 mg/dL (75-110); POTASSIUM 4.6 mmol/L (3.6-5.0); TOTAL PROTEIN 7.2 g/dL (6.3-8.2)
[2020-03-31 14:03] LABS: CREATINE KINASE MB 0.26 ng/mL (<4.55)
[2020-03-31 14:05] LABS: TROPONIN I < 0.012 ng/mL
--- NOTE | 2020-03-31 14:10 | RADIOLOGY REPORT (SQ) ---
EXAM DESCRIPTION: CT HEAD WITHOUT IMAGES COMPLETED DATE/TIME: 03/31/2020 1:52 pm REASON FOR STUDY: cp COMPARISON: None. TECHNIQUE: Axial images acquired through the brain without intravenous contrast. Images reviewed wi th bone, brain and subdural windows. Additional sagittal and coronal reconstructions were generated. Images stored on PACS. All CT scanners at this facility use dose modulation, iterative reconstruction, and/or weight based d osing when appropriate to reduce radiation dose to as low as reasonably achievable (ALARA). [facility]: Dose Right [facility]: CareDose [facility]: Dose Right [facility]: Teradose 4D [facility]: Tipp24 RADIATION DOSE: CT Rad equipment meets quality standard of care and radiation dose reduction techniq ues were employed. CTDIvol: 53.2 mGy. DLP: 1070 mGy-cm. mGy. LIMITATIONS: None. FINDINGS: VENTRICLES: Normal size and contour. CEREBRUM: No masses. No hemorrhage. No midline shift. No evidence for acute infarction. Normal gra y/white matter differentiation. No areas of low density in the white matter. CEREBELLUM: No masses. No hemorrhage. No alteration of density. No evidence for acute infarction. EXTRAAXIAL SPACES: No fluid collections. No masses. ORBITS AND GLOBE: No intra- or extraconal masses. Normal contour of globe without masses. CALVARIUM: No fracture. PARANASAL SINUSES: No fluid or mucosal thickening. SOFT TISSUES: No mass or hematoma. OTHER: No other significant finding. IMPRESSION: NORMAL BRAIN CT WITHOUT CONTRAST. EVIDENCE OF ACUTE STROKE: NO. COMMENT: Quality ID # [id number]: Final reports with documentation of one or more dose reduction techniques (e.g., Automated exposure control, adjustment of the mA and/or kV according to patient size, use of iterative reconstruction technique) TECHNICAL DOCUMENTATION: JOB ID: [id number] 2010 [employer]- All Rights Reserved Reading location - IP/workstation name: [email or web address]
--- NOTE | 2020-03-31 14:12 | RADIOLOGY REPORT (SQ) ---
EXAM DESCRIPTION: CHEST SINGLE VIEW IMAGES COMPLETED DATE/TIME: 03/31/2020 1:56 pm REASON FOR STUDY: cpChest pain COMPARISON: 10/14/2019 EXAM PARAMETERS: NUMBER OF VIEWS: One view. TECHNIQUE: Single frontal radiographic view of the chest acquired. RADIATION DOSE: NA LIMITATIONS: None. FINDINGS: LUNGS AND PLEURA: No opacities, masses or pneumothorax. No pleural effusion. Unchanged el evation of the right hemidiaphragm. MEDIASTINUM AND HILAR STRUCTURES: No masses. Contour normal. HEART AND VASCULAR STRUCTURES: Heart normal in size. Normal vasculature. BONES: No acute findings. HARDWARE: None in the chest. OTHER: No other significant finding. IMPRESSION: NO ACUTE RADIOGRAPHIC FINDING IN THE CHEST. TECHNICAL DOCUMENTATION: JOB ID: [id number] 2010 [employer]- All Rights Reserved Reading location - IP/workstation name: [email or web address]
[2020-03-31 17:31] VITALS: BP 122/75
--- NOTE | 2020-03-31 19:21 | EKG REPORT ---
SEVERITY:- NORMAL ECG - SINUS RHYTHM : Confirmed by: Hay Ramos 31-Mar-2020 19:19:54
== END 2020-03-31 17:41 | disposition home or self-care (01) ==
LOC: ER 12:58
DX: I20.9 Angina pectoris, unspecified (principal); R07.9 Chest pain, unspecified; R42 Dizziness and giddiness
CPT/HCPCS: 36415; 70450; 71045; 80053; 82550; 82553; 84484; 85025; 93005; 93010; 99285